=== PATIENT | female | born 1950 | race Caucasian/White ===

== ENCOUNTER 2018-01-30 20:43 | Inpatient (IN) | payer MEDICARE, BC ==
[~2018-01-30] VITALS: Ht 157.5 cm; Wt 40.8 kg
[2018-01-30 21:00] VITALS: BP_SYST 135
[2018-01-30] MEDS ORDERED: Z GUARD REMEDY PASTE 57 GM TUBE TOP PRN (21:15)
--- NOTE | 2018-01-30 21:30 | NUR ---
Pt arrived in the unit at 2100 via gurney. Transported by ambulance. Vital signs: BP 145/77, HR 86, RR 19, TEMP. 99.5 F, O2 SAT 95%. No acute distress noted. Pertinent assessment done. Pictures taken and in chart. Oriented patient to the unit and equipment. Pt has mcginnis catheter, draining well with yellow colored urine. On contact isolation for herpes zoster on the eye. Safety measures maintained. Call light and personal belongings within reach. Will continue to monitor.
[2018-01-30] MEDS ORDERED: CALC0.258 PO (21:34)
[2018-01-30] MEDS ORDERED: SENN-18 PO (21:34)
[2018-01-30] MEDS ORDERED: GABA600T PO (21:34)
[2018-01-30] MEDS ORDERED: SODI650T PO (21:34)
[2018-01-30] MEDS ORDERED: OMEP20TA20 PO (21:34)
[2018-01-30] MEDS ORDERED: LEVO112T2 PO (21:34)
[2018-01-30] MEDS ORDERED: TRAZ-147 PO (21:34)
[2018-01-30] MEDS ORDERED: BUPR-96 PO (21:34)
[2018-01-30] MEDS ORDERED: DIME240C2 PO (21:34)
[2018-01-30] MEDS ORDERED: METO-356 PO (21:34)
[2018-01-30] MEDS ORDERED: SERT50TA PO (21:34)
--- NOTE | 2018-01-30 22:00 | NUR ---
MD Shayla Benitez notified regarding admission and medication reconciliation. Med recon completed and faxed to after-hour pharmacy. Notified the after hour pharmacy. According to pharmacist, med recon to be done by [facility] in AM. Med recon faxed to [facility]. Informed Dr. Benitez regarding patient's isolation status and no anti-virals, per MD, "follow up with AM doctor." Will continue to monitor pt.
[2018-01-30] MEDS ORDERED: TRAZODONE 100 MG TABLET PO STA (23:25)
--- NOTE | 2018-01-31 | NUR ---
Pt has some home meds in her belongings and was collected. Pt wanted to take one of her home meds named Tecfidera. Explained to the pt that we have to send it to the pharmacy first and has to approved it. notified and said that it can be resume in the morning. Will continue to monitor.
[2018-01-31] MEDS: ACETAMINOPHEN 325 MG TABLET PO PRN ×2 (00:03→12:03)
[2018-01-31 07:45] LABS: BASOPHILS # (AUTO) 0.1 K/uL (0.0-8.0); BASOPHILS % (AUTO) 1.6 % (0.0-2.0); EOSINOPHILS # (AUTO) 0.4 K/uL (0.0-0.7); EOSINOPHILS % (AUTO) 8.6 % (0.0-7.0); HEMATOCRIT 28.5 % (31.2-41.9); HEMOGLOBIN 9.8 g/dL (10.9-14.3); LYMPHOCYTES # (AUTO) 1.4 K/uL (20.0-40.0); LYMPHOCYTES % (AUTO) 28.1 % (20.5-51.5); MEAN CORPUSCULAR HEMOGLOBIN 30.7 uug (24.7-32.8); MEAN CORPUSCULAR HGB CONC 34 g/dL (32.3-35.6); MEAN CORPUSCULAR VOLUME 89.4 fL (75.5-95.3); MONOCYTES # (AUTO) 0.8 K/uL (2.0-10.0); MONOCYTES % (AUTO) 17.3 % (0.0-11.0); NEUTROPHILS # (AUTO) 2.2 K/uL (1.8-8.9); NEUTROPHILS % (AUTO) 44.4 % (38.5-71.5); PLATELET COUNT (AUTO) 295 K/uL (179-408); RED BLOOD CELL COUNT(AUTO) 3.18 MIL/uL (3.63-4.92); WHITE BLOOD COUNT (AUTO) 4.9 K/uL (3.8-11.8)
[2018-01-31] MEDS ORDERED: SENNOSIDES 1 TABLET PO PRN ×2 (07:45→12:00)
[2018-01-31 07:52] LABS: CREATININE 2.2 mg/dL (0.6-1.3); POTASSIUM 4.6 mmol/L (3.5-5.1)
[2018-01-31 08:53] VITALS: BP 136/75
[2018-01-31] MEDS ORDERED: METOPROLOL TARTRATE 25 MG TABLET PO ONE (09:00)
[2018-01-31] MEDS: buPROPion XL 150 MG TAB.SR.24H PO SCH (09:01)
[2018-01-31] MEDS: LEVOTHYROXINE SODIUM 112 MCG TABLET PO SCH (09:01)
[2018-01-31] MEDS: PANTOPRAZOLE SODIUM 40 MG TABLET.DR PO SCH (09:01)
[2018-01-31] MEDS: GABAPENTIN 300 MG CAPSULE PO SCH ×2 (09:01→16:38)
[2018-01-31 09:55] LABS: BASOPHILS % (MANUAL) 1 % (0-2); EOSINOPHILS % (MANUAL) 6 % (0-8); LYMPHOCYTES % (MANUAL) 34 % (20-40); MONOCYTES % (MANUAL) 11 % (2-10); NEUTROPHILS % (MANUAL) 47 % (42-75)
[2018-01-31 09:58] LABS: REACTIVE LYMPHOCYTES 1 % (0-0)
[2018-01-31] MEDS: SODIUM BICARBONATE 650 MG TABLET PO SCH ×2 (10:10→16:38)
[2018-01-31] MEDS: TECFIDERA 240 MG PO SCH ×2 (10:10→16:37)
--- NOTE | 2018-01-31 14:11 | NUR ---
SBAR report received, board updated. Pt assessed, no acute distress or SOB. Pt complaint with all routine medication administration including Tylenol for headache. Whalen Catheter irrigated and 660 ml emptied. Pt clean and dry, linens and gown changed. Pt seen by MD, new orders received. Pt sat up for breakfast, and assisted back in to bed. Pt x1 assist. All safety and comfort needs attended to. Bed in locked and lowest position with side rails upx2. Contact isolation maintained r/t herpes zoster scabs present surrounding right eye to sculp. Call light placed within reach. Will continue to monitor.
[2018-01-31] MEDS: MIRALAX 17 GM POWD.PACK PO PRN (16:39)
[2018-01-31] MEDS: HYDROCODONE/APAP 10-325 MG TABLET PO PRN (18:34)
--- NOTE | 2018-01-31 20:00 | NUR ---
PATIENT A/OX4. ABLE TO AMBULATE WITH FRONT WHEEL WALKER WITH STAND BY ASSIST TO RESTROOM. PATIENT DENIES PAIN AT THIS TIME. PLASCENCIA CATH DRAINING CLEAR YELLOW URINE. NO DISTRESS NOTED
[2018-01-31 20:31] VITALS: BP 148/66
[2018-01-31] MEDS: TRAZODONE 100 MG TABLET PO SCH (20:46)
[2018-01-31] MEDS: METOPROLOL TARTRATE 25 MG TABLET PO SCH (20:46)
[2018-01-31] MEDS: SERTRALINE HCL 50 MG TABLET PO SCH (20:47)
[2018-01-31] MEDS ORDERED: METOPROLOL SUCCINATE XL 25 MG TAB.SR.24H PO SCH (21:00)
[2018-01-31] MEDS ORDERED: TRAZODONE 100 MG TABLET PO SCH (21:00)
[2018-02-01 05:18] VITALS: BP 131/78
[2018-02-01] MEDS: PANTOPRAZOLE SODIUM 40 MG TABLET.DR PO SCH (06:15)
[2018-02-01] MEDS: LEVOTHYROXINE SODIUM 112 MCG TABLET PO SCH (06:15)
[2018-02-01 07:45] LABS: BASOPHILS # (AUTO) 0.1 K/uL (0.0-8.0); BASOPHILS % (AUTO) 1.5 % (0.0-2.0); EOSINOPHILS # (AUTO) 0.4 K/uL (0.0-0.7); EOSINOPHILS % (AUTO) 5.6 % (0.0-7.0); HEMATOCRIT 31.4 % (31.2-41.9); HEMOGLOBIN 10.7 g/dL (10.9-14.3); LYMPHOCYTES # (AUTO) 1.3 K/uL (20.0-40.0); LYMPHOCYTES % (AUTO) 20.2 % (20.5-51.5); MEAN CORPUSCULAR HEMOGLOBIN 30.4 uug (24.7-32.8); MEAN CORPUSCULAR HGB CONC 34 g/dL (32.3-35.6); MEAN CORPUSCULAR VOLUME 89.5 fL (75.5-95.3); MONOCYTES # (AUTO) 0.8 K/uL (2.0-10.0); MONOCYTES % (AUTO) 12.4 % (0.0-11.0); NEUTROPHILS % (AUTO) 60.3 % (38.5-71.5); PLATELET COUNT (AUTO) 315 K/uL (179-408); WHITE BLOOD COUNT (AUTO) 6.6 K/uL (3.8-11.8)
[2018-02-01] MEDS: buPROPion XL 150 MG TAB.SR.24H PO SCH (07:55)
[2018-02-01] MEDS: METOPROLOL TARTRATE 25 MG TABLET PO SCH ×2 (07:55→21:23)
[2018-02-01] MEDS: GABAPENTIN 300 MG CAPSULE PO SCH ×2 (07:55→17:02)
[2018-02-01] MEDS: SODIUM BICARBONATE 650 MG TABLET PO SCH ×2 (07:56→17:02)
[2018-02-01] MEDS: HYDROCODONE/APAP 10-325 MG TABLET PO PRN ×2 (07:56→13:53)
[2018-02-01] MEDS: TECFIDERA 240 MG PO SCH ×2 (07:56→17:02)
[2018-02-01] MEDS: CALCITRIOL 0.25 MCG CAPSULE PO SCH (07:56)
[2018-02-01 08:20] VITALS: BP 135/72
[2018-02-01 08:55] LABS: BILIRUBIN,TOTAL 0.2 mg/dL (0.2-1.0); CREATININE 2.2 mg/dL (0.6-1.3); MAGNESIUM 1.6 mg/dL (1.8-2.4); POTASSIUM 4.7 mmol/L (3.5-5.1); TOTAL PROTEIN, SERUM 6.3 g/dL (6.4-8.2)
--- NOTE | 2018-02-01 08:58 | NUR ---
Received patient awake, alert and orientedx4. Complaint of generalize pain scale of 7 out of 10. Continue on pain management with good effect. not in distress. will continue monitor
[2018-02-01 11:30] LABS: *BILIRUBIN,URIN NEGATIVE (NEGATIVE); *BLOOD, URINE 1+ (NEGATIVE); *CLARITY,URINE CLEAR (CLEAR); *COLOR,URINE YELLOW (YELLOW); *KETONES,URINE NEGATIVE (NEGATIVE); *PROTEIN,URINE 1+ (NEGATIVE); *UROBILINOGEN,URINE 0.2 E.U./dl (NORMAL); LEUKOCYTE ESTERASE ,URINE 3+ (NEGATIVE); NITRITE, URINE NEGATIVE (NEGATIVE); PH,URINE 7.5 (5.0-8.0); UGLUCOSE NEGATIVE (NEGATIVE)
[2018-02-01 11:34] LABS: *CREATININE,URINE 20.8 mg/dL (30-125); *URINE TOTAL PROTEIN RANDOM 37.9 mg/dL (<150/24HR)
[2018-02-01 12:00] LABS: BACTERIA,URINE FEW /HPF (NONE SEEN); SQUAMOUS EPITHELIAL CELL,UR FEW /HPF (NONE SEEN)
--- NOTE | 2018-02-01 17:28 | NUR ---
urine and stool standard order collected, awaiting result
--- NOTE | 2018-02-01 20:00 | NUR ---
Patient received on bed awake, alert, and oriented x4. No acute distress or SOB was noted. on room air. On contact isolation. Whalen catheter in place, draining well. Personal belongings and call light within reach. All comfort and safety measure implemented. Bed alarm on, bed in locked and lowest position with side rails up x2. Will continue to monitor.
[2018-02-01] MEDS: TRAZODONE 100 MG TABLET PO SCH (21:11)
[2018-02-01 21:12] VITALS: BP 105/62
[2018-02-01] MEDS: SERTRALINE HCL 50 MG TABLET PO SCH (21:24)
[2018-02-02 05:39] VITALS: BP 142/77
--- NOTE | 2018-02-02 05:58 | NUR ---
End of the shift note, The patient is awake and alert x4. No acute distress, no SOB. On room air with O2 sat 99%. Whalen catheter was in placed, and irrigate with normal saline, draining well. No complain of pain. Meds given as ordered,Call light and personal belonging within reach. Bed alarm and bed brakes on for safety precaution. Was stable throughout the shift. Will endorse day shift nurses accordingly.
[2018-02-02] MEDS: PANTOPRAZOLE SODIUM 40 MG TABLET.DR PO SCH (06:50)
[2018-02-02] MEDS: LEVOTHYROXINE SODIUM 112 MCG TABLET PO SCH (06:50)
[2018-02-02 08:00] VITALS: BP 130/62
--- NOTE | 2018-02-02 08:15 | NUR ---
Received patient, awake alert x4. Intact Whalen draining to yellow colored urine. Not in any form of distress. Still on isolation for Shingles.
--- NOTE | 2018-02-02 09:30 | NUR ---
Pain over face rated as 8/10. PRN [place] given.
[2018-02-02] MEDS: SODIUM BICARBONATE 650 MG TABLET PO SCH ×2 (09:56→17:17)
[2018-02-02] MEDS: GABAPENTIN 300 MG CAPSULE PO SCH (09:57)
[2018-02-02] MEDS: HYDROCODONE/APAP 10-325 MG TABLET PO PRN (09:57)
[2018-02-02] MEDS: TECFIDERA 240 MG PO SCH ×2 (09:57→17:17)
[2018-02-02] MEDS: buPROPion XL 150 MG TAB.SR.24H PO SCH (09:57)
[2018-02-02] MEDS: METOPROLOL TARTRATE 25 MG TABLET PO SCH ×2 (09:58→21:00)
[2018-02-02 11:15] LABS: *OCCULT BLOOD STOOL NEGATIVE (NEGATIVE)
[2018-02-02 16:02] VITALS: BP 141/65
[2018-02-02] MEDS ORDERED: GABAPENTIN 400 MG CAPSULE PO SCH (17:00)
[2018-02-02 19:30] VITALS: BP 134/71
[2018-02-02] MEDS ORDERED: PREGABALIN 25 MG CAPSULE PO SCH (20:00)
--- NOTE | 2018-02-02 20:00 | NUR ---
Patient received on bed awake, alert, and oriented x4. No acute distress or SOB was noted. on room air. She is not on contact isolation anymore. Whalen catheter in place, draining well. Personal belongings and call light within reach. Complained of pain. All comfort and safety measure implemented. Bed alarm on, bed in locked and lowest position with side rails up x2. Will continue to monitor.
[2018-02-02] MEDS: SERTRALINE HCL 50 MG TABLET PO SCH (20:57)
[2018-02-02] MEDS: OXYCODONE HCL 10 MG TAB.SR.12H PO SCH ×3 (20:58→21:01)
[2018-02-02] MEDS: TRAZODONE 100 MG TABLET PO SCH (20:59)
[2018-02-02] MEDS: PREGABALIN 100 MG CAPSULE PO SCH (20:59)
--- NOTE | 2018-02-02 21:47 | NUR ---
at 2000 dose of Oxycontin 10 mg PO given. Tolerated well. Safety measure was implemented. Continue to monitor and reassess the pain.
[2018-02-03] MEDS: LEVOTHYROXINE SODIUM 112 MCG TABLET PO SCH (06:47)
[2018-02-03] MEDS: PANTOPRAZOLE SODIUM 40 MG TABLET.DR PO SCH (06:47)
--- NOTE | 2018-02-03 06:54 | NUR ---
End of the shift note, The patient is awake and alert x4. No acute distress, no SOB. On room air with O2 sat 95%. Whalen catheter was in placed, draining well. pain assessed and reassessed after pain medication. Meds given as ordered. Call light and personal belonging within reach. Bed alarm and bed brakes on for safety precaution. Was stable throughout the shift. Will endorse day shift nurses accordingly.
[2018-02-03 07:11] LABS: BASOPHILS # (AUTO) 0.2 K/uL (0.0-8.0); BASOPHILS % (AUTO) 1.9 % (0.0-2.0); EOSINOPHILS # (AUTO) 0.3 K/uL (0.0-0.7); HEMATOCRIT 30.3 % (31.2-41.9); HEMOGLOBIN 10.3 g/dL (10.9-14.3); LYMPHOCYTES # (AUTO) 2.2 K/uL (20.0-40.0); LYMPHOCYTES % (AUTO) 26.2 % (20.5-51.5); MEAN CORPUSCULAR HEMOGLOBIN 30.2 uug (24.7-32.8); MEAN CORPUSCULAR HGB CONC 34 g/dL (32.3-35.6); MEAN CORPUSCULAR VOLUME 89.4 fL (75.5-95.3); MONOCYTES % (AUTO) 11.9 % (0.0-11.0); NEUTROPHILS # (AUTO) 4.7 K/uL (1.8-8.9); PLATELET COUNT (AUTO) 308 K/uL (179-408); RED BLOOD CELL COUNT(AUTO) 3.39 MIL/uL (3.63-4.92); WHITE BLOOD COUNT (AUTO) 8.3 K/uL (3.8-11.8)
[2018-02-03 07:32] LABS: BILIRUBIN,TOTAL 0.2 mg/dL (0.2-1.0); CREATININE 2.5 mg/dL (0.6-1.3); MAGNESIUM 1.7 mg/dL (1.8-2.4); PHOSPHOROUS 6.2 mg/dL (2.5-4.9); POTASSIUM 5.5 mmol/L (3.5-5.1); TOTAL PROTEIN, SERUM 6.4 g/dL (6.4-8.2)
--- NOTE | 2018-02-03 08:10 | NUR ---
RECEIVED PATIENT, AWAKE ALERT X4. WITH PLASCENCIA INTACT DRAINING TO YELLOW COLORED URINE, CLOUDY. WITH PAIN OVER FACE RATED 7/10. NOT IN ANY FORM OF DISTRESS.
[2018-02-03] MEDS ORDERED: SODIUM POLYSTYRENE SULFONATE 15 G/60 ML LIQUID UDC PO ONE (08:30)
[2018-02-03] MEDS: SODIUM BICARBONATE 650 MG TABLET PO SCH ×2 (09:06→17:47)
[2018-02-03] MEDS: TECFIDERA 240 MG PO SCH ×2 (09:06→17:47)
[2018-02-03] MEDS: OXYCODONE HCL 10 MG TAB.SR.12H PO SCH ×2 (09:06→21:05)
[2018-02-03] MEDS: buPROPion XL 150 MG TAB.SR.24H PO SCH (09:06)
[2018-02-03] MEDS: CALCITRIOL 0.25 MCG CAPSULE PO SCH (09:06)
[2018-02-03] MEDS: METOPROLOL TARTRATE 25 MG TABLET PO SCH ×2 (09:07→21:00)
[2018-02-03] MEDS: PREGABALIN 100 MG CAPSULE PO SCH ×2 (09:07→21:05)
[2018-02-03 09:35] VITALS: BP 120/71
--- NOTE | 2018-02-03 10:40 | NUR ---
SEEN AND EXAMINED BY DR. HUANG. LABS ORDERED, LIDOCAINE OINTMENT ORDERED FOR FACIAL SCAR
--- NOTE | 2018-02-03 11:00 | NUR ---
PATIENT REQUESTED PLASCENCIA CATHETER TO BE IRRIGATED. IRRIGATION DONE WITH YELLOWISH URINE RETURN ACCOMPANIED BY SEDIMENTS AND MUCOUS. NO PAIN NOTED.
[2018-02-03] MEDS: MIRALAX 17 GM POWD.PACK PO PRN (12:14)
[2018-02-03] MEDS: LIDOCAINE 5% OINT 35.44 GM TUBE TOP SCH ×2 (12:14→17:48)
--- NOTE | 2018-02-03 13:53 | NUR ---
INTERDISCIPLINARY TEAM CONFERENCE
[2018-02-03] MEDS: OXYCODONE HCL 5 MG TABLET PO PRN (14:07)
[2018-02-03] MEDS ORDERED: MAGNESIUM OXIDE 400 MG TABLET PO ONE (14:30)
[2018-02-03 16:16] VITALS: BP 111/57
[2018-02-03 20:00] VITALS: BP 110/53
[2018-02-03] MEDS: TRAZODONE 100 MG TABLET PO SCH (21:04)
[2018-02-03] MEDS: SERTRALINE HCL 50 MG TABLET PO SCH (21:05)
--- NOTE | 2018-02-03 22:05 | NUR ---
Received pt resting in bed and watching TV. AAO x4. No acute distress noted. C/o pain on the right side of the head, pt has some painful rash on the area due to shingles. Scheduled pain med and other meds given. Held lopressor due to decreased BP. Whalen catheter noted, draining well with clear yellow colored urine. Safety measures maintained. Call light and personal belongings within reach. Will continue to monitor.
[2018-02-04 04:00] VITALS: BP 122/51
[2018-02-04] MEDS: LEVOTHYROXINE SODIUM 112 MCG TABLET PO SCH (06:12)
[2018-02-04] MEDS: PANTOPRAZOLE SODIUM 40 MG TABLET.DR PO SCH (06:12)
[2018-02-04 07:20] LABS: BASOPHILS # (AUTO) 0.1 K/uL (0.0-8.0); BASOPHILS % (AUTO) 1.1 % (0.0-2.0); EOSINOPHILS # (AUTO) 0.3 K/uL (0.0-0.7); EOSINOPHILS % (AUTO) 4.7 % (0.0-7.0); HEMATOCRIT 29.8 % (31.2-41.9); HEMOGLOBIN 10.2 g/dL (10.9-14.3); LYMPHOCYTES # (AUTO) 1.8 K/uL (20.0-40.0); LYMPHOCYTES % (AUTO) 30.1 % (20.5-51.5); MEAN CORPUSCULAR HEMOGLOBIN 30.4 uug (24.7-32.8); MEAN CORPUSCULAR HGB CONC 34 g/dL (32.3-35.6); MEAN CORPUSCULAR VOLUME 88.8 fL (75.5-95.3); MONOCYTES # (AUTO) 0.6 K/uL (2.0-10.0); MONOCYTES % (AUTO) 11.1 % (0.0-11.0); NEUTROPHILS # (AUTO) 3.1 K/uL (1.8-8.9); PLATELET COUNT (AUTO) 297 K/uL (179-408); RED BLOOD CELL COUNT(AUTO) 3.35 MIL/uL (3.63-4.92); WHITE BLOOD COUNT (AUTO) 5.8 K/uL (3.8-11.8)
[2018-02-04 07:40] LABS: BILIRUBIN,TOTAL 0.2 mg/dL (0.2-1.0); CREATININE 2.6 mg/dL (0.6-1.3); MAGNESIUM 1.7 mg/dL (1.8-2.4); PHOSPHOROUS 7.1 mg/dL (2.5-4.9); POTASSIUM 4.9 mmol/L (3.5-5.1); TOTAL PROTEIN, SERUM 6.5 g/dL (6.4-8.2)
[2018-02-04] MEDS: BISACODYL 5 MG TABLET.DR PO PRN (08:14)
[2018-02-04] MEDS: MIRALAX 17 GM POWD.PACK PO PRN (08:14)
[2018-02-04] MEDS: buPROPion XL 150 MG TAB.SR.24H PO SCH (08:15)
[2018-02-04] MEDS: METOPROLOL TARTRATE 25 MG TABLET PO SCH ×2 (08:16→21:00)
[2018-02-04] MEDS: PREGABALIN 100 MG CAPSULE PO SCH ×2 (08:16→20:57)
[2018-02-04] MEDS: OXYCODONE HCL 10 MG TAB.SR.12H PO SCH ×2 (08:16→20:58)
[2018-02-04] MEDS: LIDOCAINE 5% OINT 35.44 GM TUBE TOP SCH ×2 (08:17→16:49)
[2018-02-04] MEDS: SODIUM BICARBONATE 650 MG TABLET PO SCH ×2 (08:17→16:47)
[2018-02-04] MEDS: TECFIDERA 240 MG PO SCH ×2 (08:17→16:46)
[2018-02-04 08:25] VITALS: BP 133/60
--- NOTE | 2018-02-04 09:32 | NUR ---
Received patient awake, alert and orientedx3. Continue on pain management with good effect. no BM since 02/01/18, miralax and dulcolax 10mg PO given. Continue on mcginnis catheter, 900cc urine output with mucous noted. flush 50cc of sterile water done. for collection of urine for creatinine random and urinalysis. will continue monitor
[2018-02-04] MEDS ORDERED: MAGNESIUM SULFATE/D5W 100 ML IV SCH (12:00)
[2018-02-04] MEDS ORDERED: IV NS 1000 ML 1,000 ML IV PRN (12:00)
[2018-02-04] MEDS: SEVELAMER CARBONATE 800 MG TABLET PO SCH ×2 (12:37→16:44)
[2018-02-04] MEDS ORDERED: MAGNESIUM OXIDE 400 MG TABLET PO ONE (12:45)
[2018-02-04 13:39] LABS: *BILIRUBIN,URIN NEGATIVE (NEGATIVE); *BLOOD, URINE 2+ (NEGATIVE); *COLOR,URINE LIGHT YELLOW (YELLOW); *KETONES,URINE NEGATIVE (NEGATIVE); *PROTEIN,URINE 1+ (NEGATIVE); *UROBILINOGEN,URINE 0.2 E.U./dl (NORMAL); LEUKOCYTE ESTERASE ,URINE 3+ (NEGATIVE); NITRITE, URINE NEGATIVE (NEGATIVE); PH,URINE 7.5 (5.0-8.0); UGLUCOSE NEGATIVE (NEGATIVE)
[2018-02-04 13:49] LABS: *CLARITY,URINE HAZY (CLEAR)
[2018-02-04 13:58] LABS: WBC,URINE 50-80 /HPF (0-3)
[2018-02-04 13:59] LABS: BACTERIA,URINE FEW /HPF (NONE SEEN); MUCUS,URINE FEW /LPF (0-FEW); SQUAMOUS EPITHELIAL CELL,UR FEW /HPF (NONE SEEN)
[2018-02-04 14:09] LABS: *CREATININE,URINE 22.4 mg/dL (30-125); *URINE TOTAL PROTEIN RANDOM 48.1 mg/dL (<150/24HR)
[2018-02-04 16:34] VITALS: BP 92/50
[2018-02-04] MEDS: OXYCODONE HCL 5 MG TABLET PO PRN (16:45)
--- NOTE | 2018-02-04 18:07 | NUR ---
Patient low magnesium result. MD Mancilla aware. Patient refuse IVF magnesium, ordered mg oxide 400 mg one time PO, urine collected for creatinine random and UA/CS, negative for critical value, awaiting for culture. will continue monitor
[2018-02-04 19:44] VITALS: BP 108/48
[2018-02-04] MEDS: SERTRALINE HCL 50 MG TABLET PO SCH (20:57)
[2018-02-04] MEDS: TRAZODONE 100 MG TABLET PO SCH (20:58)
--- NOTE | 2018-02-04 21:28 | NUR ---
Patient sleeping upon arrival to room , pt easily aroused by name , A & O x 4 , pt complaining pain from rash on rt forehead , Medications given at 2100 , pain med oxycontin 10 mg given as scheduled . Withheld Lopressor due to low BP . Whalen catheter checked and intact , urine clear and yellow.
[2018-02-05 05:00] VITALS: BP 120/62
[2018-02-05] MEDS: PANTOPRAZOLE SODIUM 40 MG TABLET.DR PO SCH (06:22)
[2018-02-05] MEDS: LEVOTHYROXINE SODIUM 112 MCG TABLET PO SCH (06:27)
[2018-02-05 06:55] LABS: CREATININE 2.9 mg/dL (0.6-1.3); MAGNESIUM 1.7 mg/dL (1.8-2.4); PHOSPHOROUS 7.1 mg/dL (2.5-4.9); POTASSIUM 5.3 mmol/L (3.5-5.1)
[2018-02-05 07:00] LABS: BASOPHILS # (AUTO) 0.1 K/uL (0.0-8.0); BASOPHILS % (AUTO) 1.1 % (0.0-2.0); EOSINOPHILS # (AUTO) 0.3 K/uL (0.0-0.7); EOSINOPHILS % (AUTO) 4.3 % (0.0-7.0); HEMATOCRIT 27.7 % (31.2-41.9); HEMOGLOBIN 9.5 g/dL (10.9-14.3); LYMPHOCYTES # (AUTO) 1.6 K/uL (20.0-40.0); LYMPHOCYTES % (AUTO) 21.4 % (20.5-51.5); MEAN CORPUSCULAR HEMOGLOBIN 30.5 uug (24.7-32.8); MEAN CORPUSCULAR HGB CONC 34 g/dL (32.3-35.6); MEAN CORPUSCULAR VOLUME 89.5 fL (75.5-95.3); MONOCYTES # (AUTO) 0.8 K/uL (2.0-10.0); NEUTROPHILS # (AUTO) 4.6 K/uL (1.8-8.9); NEUTROPHILS % (AUTO) 62.2 % (38.5-71.5); PLATELET COUNT (AUTO) 284 K/uL (179-408); RED BLOOD CELL COUNT(AUTO) 3.09 MIL/uL (3.63-4.92); WHITE BLOOD COUNT (AUTO) 7.4 K/uL (3.8-11.8)
--- NOTE | 2018-02-05 08:00 | NUR ---
Patient awake, in bed, alert, verbally responsive, not in any form of acute distress. She denies any pain or discomfort at this time. Assisted with her needs. Call light placed within reach. Reminded to use call light for assistance with verbalized understanding.
[2018-02-05 08:37] VITALS: BP 123/60
[2018-02-05] MEDS: buPROPion XL 150 MG TAB.SR.24H PO SCH (08:45)
[2018-02-05] MEDS: SEVELAMER CARBONATE 800 MG TABLET PO SCH ×3 (08:46→17:33)
[2018-02-05] MEDS: OXYCODONE HCL 10 MG TAB.SR.12H PO SCH ×2 (08:47→20:18)
[2018-02-05] MEDS: PREGABALIN 100 MG CAPSULE PO SCH ×2 (08:47→20:18)
[2018-02-05] MEDS: LIDOCAINE 5% OINT 35.44 GM TUBE TOP SCH ×2 (08:48→17:32)
[2018-02-05] MEDS: TECFIDERA 240 MG PO SCH ×2 (08:48→17:32)
[2018-02-05] MEDS: SODIUM BICARBONATE 650 MG TABLET PO SCH ×2 (08:48→17:32)
[2018-02-05] MEDS: METOPROLOL TARTRATE 25 MG TABLET PO SCH ×2 (08:50→20:19)
--- NOTE | 2018-02-05 11:30 | NUR ---
Dr. Oquendo made his rounds, notified him regarding abnormal lab results especially potassium and UA result and MD said he will check into it and will put in some orders.
[2018-02-05] MEDS ORDERED: MAGNESIUM OXIDE 400 MG TABLET PO ONE (12:15)
[2018-02-05] MEDS: IV NS 1000 ML 1,000 ML IV SCH (13:16)
[2018-02-05] MEDS: BISACODYL 5 MG TABLET.DR PO PRN (13:20)
[2018-02-05 15:00] VITALS: BP 109/54
[2018-02-05] MEDS: OXYCODONE HCL 5 MG TABLET PO PRN (17:39)
[2018-02-05] MEDS: SERTRALINE HCL 50 MG TABLET PO SCH (20:17)
[2018-02-05] MEDS: TRAZODONE 100 MG TABLET PO SCH (20:18)
[2018-02-05 21:45] VITALS: BP 106/51
--- NOTE | 2018-02-05 22:00 | NUR ---
Patient received on bed awake, alert, and oriented x4. No acute distress or SOB was noted. On room air. No contact isolation anymore. Whalen catheter in place, draining well. IV gauge 22 on left wrist, NS 0.9% 75 ml per hour. Meds given as ordered. Personal belongings and call light within reach. Complained of pain. pain assessed and reassessed after pain medication. All comfort and safety measure implemented. Bed alarm on, bed in locked and lowest position with side rails up x2. Will continue to monitor.
[2018-02-06] MEDS: IV NS 1000 ML 1,000 ML IV SCH ×3 (01:11→23:30)
[2018-02-06] MEDS: LEVOTHYROXINE SODIUM 112 MCG TABLET PO SCH (06:19)
[2018-02-06] MEDS: PANTOPRAZOLE SODIUM 40 MG TABLET.DR PO SCH (06:19)
[2018-02-06] MEDS: MIRALAX 17 GM POWD.PACK PO PRN (06:20)
[2018-02-06 06:56] VITALS: BP 113/55
[2018-02-06 08:08] VITALS: BP 113/63
--- NOTE | 2018-02-06 08:10 | NUR ---
Received patient, awake, alert x4. With pain over upper face rated as 6/10. With intact IV infusing to NS at 75mls/hr. Intact Whalen catheter draining to yellow colored urine.
[2018-02-06 08:40] LABS: CREATININE 3.3 mg/dL (0.6-1.3); MAGNESIUM 1.8 mg/dL (1.8-2.4)
[2018-02-06 08:46] LABS: BASOPHILS # (AUTO) 0.1 K/uL (0.0-8.0); BASOPHILS % (AUTO) 1.2 % (0.0-2.0); EOSINOPHILS # (AUTO) 0.2 K/uL (0.0-0.7); EOSINOPHILS % (AUTO) 3.8 % (0.0-7.0); HEMATOCRIT 25.8 % (31.2-41.9); HEMOGLOBIN 8.7 g/dL (10.9-14.3); LYMPHOCYTES # (AUTO) 1.5 K/uL (20.0-40.0); LYMPHOCYTES % (AUTO) 25.7 % (20.5-51.5); MEAN CORPUSCULAR HEMOGLOBIN 30.2 uug (24.7-32.8); MEAN CORPUSCULAR HGB CONC 34 g/dL (32.3-35.6); MEAN CORPUSCULAR VOLUME 89.7 fL (75.5-95.3); MONOCYTES # (AUTO) 0.5 K/uL (2.0-10.0); MONOCYTES % (AUTO) 9.4 % (0.0-11.0); NEUTROPHILS # (AUTO) 3.5 K/uL (1.8-8.9); NEUTROPHILS % (AUTO) 59.9 % (38.5-71.5); PLATELET COUNT (AUTO) 244 K/uL (179-408); RED BLOOD CELL COUNT(AUTO) 2.87 MIL/uL (3.63-4.92); WHITE BLOOD COUNT (AUTO) 5.8 K/uL (3.8-11.8)
[2018-02-06] MEDS: TECFIDERA 240 MG PO SCH ×3 (09:56→21:45)
[2018-02-06] MEDS: CALCITRIOL 0.25 MCG CAPSULE PO SCH (09:56)
[2018-02-06] MEDS: METOPROLOL TARTRATE 25 MG TABLET PO SCH ×2 (09:57→21:46)
[2018-02-06] MEDS: LIDOCAINE 5% OINT 35.44 GM TUBE TOP SCH ×2 (09:57→18:12)
[2018-02-06] MEDS: buPROPion XL 150 MG TAB.SR.24H PO SCH (09:57)
[2018-02-06] MEDS: OXYCODONE HCL 10 MG TAB.SR.12H PO SCH ×2 (09:57→20:22)
[2018-02-06] MEDS: SEVELAMER CARBONATE 800 MG TABLET PO SCH ×3 (09:57→18:10)
[2018-02-06] MEDS: SODIUM BICARBONATE 650 MG TABLET PO SCH ×2 (09:57→18:10)
[2018-02-06] MEDS: PREGABALIN 100 MG CAPSULE PO SCH ×2 (09:57→20:24)
--- NOTE | 2018-02-06 10:30 | NUR ---
IV infiltrated. Up with physical therapy, tolerating well.
--- NOTE | 2018-02-06 11:30 | NUR ---
IV started over left posterior arm .
[2018-02-06] MEDS: OXYCODONE HCL 5 MG TABLET PO PRN (12:22)
[2018-02-06] MEDS ORDERED: EPOETIN ALFA 10,000 UNITS/ML VIAL SQ ONE (12:30)
[2018-02-06 16:05] VITALS: BP 133/65
[2018-02-06] MEDS ORDERED: BISACODYL 10 MG SUPP.RECT RC PRN (18:15)
[2018-02-06 19:30] VITALS: BP 120/57
[2018-02-06] MEDS: TRAZODONE 100 MG TABLET PO SCH (20:22)
[2018-02-06] MEDS: SERTRALINE HCL 50 MG TABLET PO SCH (20:22)
--- NOTE | 2018-02-06 20:30 | NUR ---
Patient appears to be weak. Pt stated that she feels anxious because she is thinking about a lot of things. Also c/o pain on the right side of the head due to shingles. Slight shortness of breath, O2 sat dropped to 88%. O2 via NC 2LPM applied. O2 sat immediately went up to 94% after O2 administration. Vital signs checked, stable. Some twitching was also observed on both feet, patient stated that she has this symptom even before due to multiple sclerosis. Pain med given as ordered. City Superintendent was in the unit doing rounds at this time and was able to seen pt, advised to continue monitoring. Advised and taught pt relaxation techniques and assured her that we are here to help her and we will continue to monitor her. Will continue to closely monitor pt t/o the night.
[2018-02-06] MEDS ORDERED: TECFIDERA 240 MG PO ONE (21:00)
--- NOTE | 2018-02-06 21:30 | NUR ---
Patient sleeping on bed comfortably, easily aroused, stated feels better. Vital signs stable. Patient asymptomatic. Meds given as ordered. Continue to close monitoring.
--- NOTE | 2018-02-06 22:01 | NUR ---
Pt was not able to take her own medication for multiple sclerosis named Tecfidera scheduled at 1700 because it ran out. Her son brought a new bottle at 2044. Sent it to the pharmacy, received by [facility]. Pharmacist dispensed a medication for tonight and I was able to get an order to give pt's own med once for tonight from Dr. Fuller due to the missed dose in the afternoon. Will continue to monitor.
[2018-02-07] MEDS: LEVOTHYROXINE SODIUM 112 MCG TABLET PO SCH (07:12)
[2018-02-07] MEDS: PANTOPRAZOLE SODIUM 40 MG TABLET.DR PO SCH (07:12)
--- NOTE | 2018-02-07 07:15 | NUR ---
At 0650, pt's VS: BP 84/59, HR 135, O2 SAT 92% on 2L O2 via NC, Temp. 98.7. Rechecked: BP 91/55, HR 130. At 0655, called NIKOLAS [facility] registration representative. No answer. Awaiting return call. At 0700, rapid response was called. Pt's VS: BP 101/57, HR 141. Blood sugar of 100. Pt stated that she is feeling a little dizzy and pain on the right forehead due to shingles. Still awaiting call back at this time. Will continue to monitor and appropriately endorse to day shift RN.
[2018-02-07 07:19] LABS: BASOPHILS # (AUTO) 0.1 K/uL (0.0-8.0); BASOPHILS % (AUTO) 1.3 % (0.0-2.0); EOSINOPHILS # (AUTO) 0.2 K/uL (0.0-0.7); EOSINOPHILS % (AUTO) 3.1 % (0.0-7.0); HEMATOCRIT 26.8 % (31.2-41.9); HEMOGLOBIN 9.1 g/dL (10.9-14.3); LYMPHOCYTES % (AUTO) 17.5 % (20.5-51.5); MEAN CORPUSCULAR HEMOGLOBIN 30.6 uug (24.7-32.8); MEAN CORPUSCULAR HGB CONC 34 g/dL (32.3-35.6); MEAN CORPUSCULAR VOLUME 90.5 fL (75.5-95.3); MONOCYTES # (AUTO) 0.6 K/uL (2.0-10.0); MONOCYTES % (AUTO) 10.6 % (0.0-11.0); NEUTROPHILS # (AUTO) 3.9 K/uL (1.8-8.9); NEUTROPHILS % (AUTO) 67.5 % (38.5-71.5); PLATELET COUNT (AUTO) 230 K/uL (179-408); RED BLOOD CELL COUNT(AUTO) 2.96 MIL/uL (3.63-4.92); WHITE BLOOD COUNT (AUTO) 5.8 K/uL (3.8-11.8)
--- NOTE | 2018-02-07 08:00 | NUR ---
Patient awake, alert, in bed, verbally responsive, not in any form of acute distress. She denies any pain. No complain of dizziness. BP 96/63, pulse fluctuating from 70's-140's, O2 sat 92% at 2LPM,
--- NOTE | 2018-02-07 08:05 | NUR ---
Paged Dr. Godinez administration assistant for [facility] nephrology, awaiting call back. Patient remains alert, and no complain of any discomfort. Assisted with her needs. Call light placed within reach. Reminded to use call light when in need of assistance with verbalized understanding.
[2018-02-07 08:07] LABS: CREATININE 3.2 mg/dL (0.6-1.3); MAGNESIUM 1.8 mg/dL (1.8-2.4); PHOSPHOROUS 6.3 mg/dL (2.5-4.9); POTASSIUM 5.2 mmol/L (3.5-5.1)
--- NOTE | 2018-02-07 08:30 | NUR ---
Received a call back from Dr. Godinez, notified him regarding patient's episode of hypotension and fluctuating HR and MD ordered STAT EKG and STAT CXR.
[2018-02-07 08:40] VITALS: BP 96/63
[2018-02-07] MEDS: METOPROLOL TARTRATE 25 MG TABLET PO SCH ×2 (09:00→20:53)
[2018-02-07] MEDS: buPROPion XL 150 MG TAB.SR.24H PO SCH (09:34)
[2018-02-07] MEDS: SEVELAMER CARBONATE 800 MG TABLET PO SCH ×3 (09:35→17:17)
[2018-02-07] MEDS: PREGABALIN 100 MG CAPSULE PO SCH ×2 (09:38→20:53)
[2018-02-07] MEDS: OXYCODONE HCL 10 MG TAB.SR.12H PO SCH ×2 (09:39→20:55)
[2018-02-07] MEDS: SODIUM BICARBONATE 650 MG TABLET PO SCH ×2 (09:40→17:16)
[2018-02-07] MEDS: LIDOCAINE 5% OINT 35.44 GM TUBE TOP SCH ×2 (09:40→17:17)
[2018-02-07] MEDS: IV NS 1000 ML 1,000 ML IV SCH ×3 (09:46→23:28)
--- NOTE | 2018-02-07 11:45 | NUR ---
Dr. Godinez came to see patient, showed him EKG result with no new order.
[2018-02-07 15:00] VITALS: BP 109/79
[2018-02-07] MEDS: TECFIDERA 240 MG PO SCH (17:15)
--- NOTE | 2018-02-07 19:20 | NUR ---
RECEIVED PT IN BED. AAO4. ON O2 AT 2LPM VIA NC. O2 SAT AT 95%, IV SITE ON LEFT FA INTACT AND PATENT. IVF INFUSING. FC INTACT AND PATENT. SAFETY MEASURE INITIATED AND CALL PINA WITHIN REACH.
--- NOTE | 2018-02-07 19:46 | NUR ---
IV NS NEW BAG HANGED BY DAY SHIFT NURSE AT 0946 AND STILL RUNNING. NO NEW BAG NEEDED AT THIS TIME.
[2018-02-07] MEDS: SERTRALINE HCL 50 MG TABLET PO SCH (20:53)
[2018-02-07] MEDS: TRAZODONE 100 MG TABLET PO SCH (20:53)
[2018-02-07 21:26] VITALS: BP 121/62
[2018-02-08 05:04] VITALS: BP 119/61
[2018-02-08] MEDS: PANTOPRAZOLE SODIUM 40 MG TABLET.DR PO SCH (06:00)
[2018-02-08] MEDS: LEVOTHYROXINE SODIUM 112 MCG TABLET PO SCH (06:00)
[2018-02-08] MEDS: BISACODYL 5 MG TABLET.DR PO PRN (06:01)
--- NOTE | 2018-02-08 06:11 | NUR ---
AAO4. ON CONTINUOS O2 AT 2LPM VIA NC. O2 SAT AT 95%. IV SITE ON LEFT FA REMAINS INTACT AND PATENT. IVF INFUSING. FC INTACT AND DRAINING VIA GRAVITY. SAFETY MEASURE MAINTAINED AND CALL [facility] WITHIN REACH.
[2018-02-08 07:32] LABS: BASOPHILS % (AUTO) 0.6 % (0.0-2.0); EOSINOPHILS % (AUTO) 0.4 % (0.0-7.0); HEMATOCRIT 25.5 % (31.2-41.9); HEMOGLOBIN 8.5 g/dL (10.9-14.3); LYMPHOCYTES # (AUTO) 0.4 K/uL (20.0-40.0); LYMPHOCYTES % (AUTO) 5.4 % (20.5-51.5); MEAN CORPUSCULAR HEMOGLOBIN 30.7 uug (24.7-32.8); MEAN CORPUSCULAR HGB CONC 34 g/dL (32.3-35.6); MEAN CORPUSCULAR VOLUME 91.4 fL (75.5-95.3); MONOCYTES # (AUTO) 0.5 K/uL (2.0-10.0); MONOCYTES % (AUTO) 6.6 % (0.0-11.0); NEUTROPHILS # (AUTO) 6.5 K/uL (1.8-8.9); PLATELET COUNT (AUTO) 224 K/uL (179-408); RED BLOOD CELL COUNT(AUTO) 2.78 MIL/uL (3.63-4.92); WHITE BLOOD COUNT (AUTO) 7.5 K/uL (3.8-11.8)
[2018-02-08 07:42] LABS: MAGNESIUM 1.7 mg/dL (1.8-2.4); POTASSIUM 5.8 mmol/L (3.5-5.1)
[2018-02-08 08:00] VITALS: BP 102/51
--- NOTE | 2018-02-08 08:10 | NUR ---
Received patient sleeping, alert and orientedx3. Continue on oxygen via nasal cannula at 2LPM. Continue flush 60cc on mcginnis catheter every shift. Continue on [id number] for 3 days. not in distress. will continue monitor
[2018-02-08] MEDS: SEVELAMER CARBONATE 800 MG TABLET PO SCH ×3 (08:51→17:54)
[2018-02-08] MEDS: PREGABALIN 100 MG CAPSULE PO SCH (08:51)
[2018-02-08] MEDS: SODIUM BICARBONATE 650 MG TABLET PO SCH ×2 (08:51→17:54)
[2018-02-08] MEDS: TECFIDERA 240 MG PO SCH ×2 (08:51→17:55)
[2018-02-08] MEDS: OXYCODONE HCL 10 MG TAB.SR.12H PO SCH ×2 (08:51→09:00)
[2018-02-08] MEDS: METOPROLOL TARTRATE 25 MG TABLET PO SCH ×2 (08:52→21:39)
[2018-02-08] MEDS: buPROPion XL 150 MG TAB.SR.24H PO SCH (08:52)
[2018-02-08] MEDS: LIDOCAINE 5% OINT 35.44 GM TUBE TOP SCH ×2 (09:26→17:54)
[2018-02-08] MEDS ORDERED: SODIUM POLYSTYRENE SULFONATE 15 G/60 ML LIQUID UDC PO ONE (10:00)
--- NOTE | 2018-02-08 10:48 | NUR ---
weakness noted when giving medicine, hard to maintain in holding her cup to drink water, need maximum assist in eating. verbalizing" Im tired". VIP MD Godinez notified and visited. ordered sodium kayexelate liquid 60ml one time and discontinue lyrica 100mg for patients weakness. Patient refuse to take oxycontin 10mg this morning. denies pain/discomfort. will continue monitor
--- NOTE | 2018-02-08 12:50 | NUR ---
Patient noted to be unresponsive for about 10minutes despite of pinching.VS: BP- 122/73 P-72 R-16 T-98.1'F BS- 123 Rapid response notified and came to assess. reposition the patient with good effect. MD mcallister notified thru phone call. will continue monitor
[2018-02-08] MEDS: IV NS 1000 ML 1,000 ML IV SCH (15:51)
[2018-02-08 19:26] VITALS: BP 126/69
--- NOTE | 2018-02-08 20:00 | NUR ---
Observed to be resting in bed at this time, easily arousable by tactile and verbal stimuli. Pt noted to be pleasantly confused and slightly anxious, but frequent reorientation provided. Pulse rate noted to be slightly tachycardic with HR in the 100's and blood pressure within normal at 116/77. No SOB. Relaxation techniques provided. Whalen catheter draining well. Safety measures implemented at all times. Call light within reach. Will continue to monitor.
[2018-02-08 20:30] VITALS: BP 117/77
[2018-02-08] MEDS ORDERED: PREGABALIN 50 MG CAPSULE PO SCH (21:00)
[2018-02-08] MEDS ORDERED: PREGABALIN 100 MG CAPSULE PO SCH (21:00)
[2018-02-08] MEDS ORDERED: OXYCODONE HCL 10 MG TAB.SR.12H PO PRN (21:00)
[2018-02-08] MEDS ORDERED: PREGABALIN 50 MG CAPSULE PO PRN (21:00)
[2018-02-08] MEDS: SERTRALINE HCL 50 MG TABLET PO SCH (21:39)
[2018-02-08] MEDS: TRAZODONE 100 MG TABLET PO SCH (21:39)
[2018-02-09] MEDS: IV NS 1000 ML 1,000 ML IV SCH (02:06)
[2018-02-09 05:40] VITALS: BP 116/70
[2018-02-09] MEDS: LEVOTHYROXINE SODIUM 112 MCG TABLET PO SCH (06:08)
[2018-02-09] MEDS: PANTOPRAZOLE SODIUM 40 MG TABLET.DR PO SCH (06:08)
--- NOTE | 2018-02-09 06:30 | NUR ---
IV INFILTRATED AT THIS TIME- ELEVATED AND WARM COMPRESS APPLIED JUGULAR VEIN DISTENTION OBSERVED WITH HR ELEVATED THE 130'S, BP AT 116/70, NO PERIPHERAL EDEMA, NO SOB NOTED. VIP MD ROD PULLER PAGED AND ENDORSED TO CALL ROD PULLER ASSEMBLIES AND INSTALLATIONS INSPECTOR DR ANN PER DR ANN, KEEP MONITORING PT AND ENDORSE TO FOLLOWING NURSE SAFE ENVIRONMENT IMPLEMENTED AT ALL TIMES. CALL LIGHT WITHIN REACH
[2018-02-09 07:44] VITALS: BP 116/65
[2018-02-09 07:53] LABS: BASOPHILS % (AUTO) 0.7 % (0.0-2.0); EOSINOPHILS % (AUTO) 0.3 % (0.0-7.0); HEMATOCRIT 26.7 % (31.2-41.9); HEMOGLOBIN 8.8 g/dL (10.9-14.3); LYMPHOCYTES # (AUTO) 0.6 K/uL (20.0-40.0); LYMPHOCYTES % (AUTO) 8.8 % (20.5-51.5); MEAN CORPUSCULAR HEMOGLOBIN 30.4 uug (24.7-32.8); MEAN CORPUSCULAR HGB CONC 33 g/dL (32.3-35.6); MEAN CORPUSCULAR VOLUME 92.1 fL (75.5-95.3); MONOCYTES # (AUTO) 0.7 K/uL (2.0-10.0); MONOCYTES % (AUTO) 10.1 % (0.0-11.0); NEUTROPHILS # (AUTO) 5.2 K/uL (1.8-8.9); NEUTROPHILS % (AUTO) 80.1 % (38.5-71.5); PLATELET COUNT (AUTO) 208 K/uL (179-408); RED BLOOD CELL COUNT(AUTO) 2.89 MIL/uL (3.63-4.92); WHITE BLOOD COUNT (AUTO) 6.5 K/uL (3.8-11.8)
[2018-02-09 08:02] LABS: CREATININE 2.8 mg/dL (0.6-1.3); MAGNESIUM 1.6 mg/dL (1.8-2.4); PHOSPHOROUS 5.8 mg/dL (2.5-4.9); POTASSIUM 4.3 mmol/L (3.5-5.1)
[2018-02-09] MEDS ORDERED: ALBUTEROL SULFATE 1.25 MG/3 ML NEBU NEB PRN (08:30)
[2018-02-09] MEDS ORDERED: IPRATROPIUM BROMIDE 0.5 MG/2.5 ML NEBU NEB PRN (08:30)
[2018-02-09] MEDS ORDERED: MAGNESIUM OXIDE 400 MG TABLET PO ONE (08:30)
[2018-02-09] MEDS: SODIUM BICARBONATE 650 MG TABLET PO SCH ×2 (08:54→17:11)
[2018-02-09] MEDS: TECFIDERA 240 MG PO SCH ×2 (08:54→17:11)
[2018-02-09] MEDS: LIDOCAINE 5% OINT 35.44 GM TUBE TOP SCH ×2 (08:55→17:12)
[2018-02-09] MEDS: METOPROLOL TARTRATE 25 MG TABLET PO SCH ×2 (08:55→20:58)
[2018-02-09] MEDS: buPROPion XL 150 MG TAB.SR.24H PO SCH (08:55)
[2018-02-09] MEDS: SEVELAMER CARBONATE 800 MG TABLET PO SCH ×3 (08:55→17:10)
[2018-02-09] MEDS ORDERED: FUROSEMIDE 40 MG TABLET PO ONE (14:00)
[2018-02-09 15:45] VITALS: BP 109/67
--- NOTE | 2018-02-09 17:54 | NUR ---
pt continues to have imbalanced electrolytes and shows signs of confusion. pt is dependent on 02 because pt desats. pt continues to be confused and removes nc. md Rosado ordered to have saline dc and cxr. cxr shows worsening chf. pt given lasix 40. pt scheduled to have ureter stent xchange in am. pt will be npo starting midnight. made son aware of procedure and signed consent. contacted md Rosado for medical clearance. PT is cleared after dose of lasix. preop checklist done. iv site 20g left wrist applied. contacted admitting to start new account for procedure.
--- NOTE | 2018-02-09 19:34 | NUR ---
Pt observed to be resting at this time. No s/s of acute distress. No SOB noted. Bed in low,locked position with bed alarm on. Call light within reach. Will continue to monitor closely
[2018-02-09 20:23] VITALS: BP 110/90
[2018-02-09] MEDS: SERTRALINE HCL 50 MG TABLET PO SCH (20:59)
[2018-02-09] MEDS: TRAZODONE 100 MG TABLET PO SCH (20:59)
[2018-02-10 05:59] VITALS: BP 120/64
[2018-02-10] MEDS: LEVOTHYROXINE SODIUM 112 MCG TABLET PO SCH (06:52)
[2018-02-10] MEDS: PANTOPRAZOLE SODIUM 40 MG TABLET.DR PO SCH (06:52)
--- NOTE | 2018-02-10 06:58 | NUR ---
KEPT NPO FOR SURGERY. INFORMED CONSENT SIGNED. NO S/S OF ACUTE DISTRESS AT THIS TIME. PT AWARE OF PLAN OF CARE AT THIS TIME WITH INTERMITTENT CONFUSION. WILL ENDORSE ACCORDINGLY
[2018-02-10 07:08] LABS: BASOPHILS # (AUTO) 0.1 K/uL (0.0-8.0); BASOPHILS % (AUTO) 1.1 % (0.0-2.0); EOSINOPHILS # (AUTO) 0.1 K/uL (0.0-0.7); EOSINOPHILS % (AUTO) 1.5 % (0.0-7.0); HEMATOCRIT 25.4 % (31.2-41.9); HEMOGLOBIN 8.4 g/dL (10.9-14.3); LYMPHOCYTES # (AUTO) 0.8 K/uL (20.0-40.0); LYMPHOCYTES % (AUTO) 10.9 % (20.5-51.5); MEAN CORPUSCULAR HGB CONC 33 g/dL (32.3-35.6); MEAN CORPUSCULAR VOLUME 90.6 fL (75.5-95.3); MONOCYTES # (AUTO) 0.8 K/uL (2.0-10.0); MONOCYTES % (AUTO) 10.6 % (0.0-11.0); NEUTROPHILS # (AUTO) 5.6 K/uL (1.8-8.9); NEUTROPHILS % (AUTO) 75.9 % (38.5-71.5); PLATELET COUNT (AUTO) 216 K/uL (179-408); RED BLOOD CELL COUNT(AUTO) 2.81 MIL/uL (3.63-4.92); WHITE BLOOD COUNT (AUTO) 7.3 K/uL (3.8-11.8)
[2018-02-10 07:37] LABS: BILIRUBIN,TOTAL 0.3 mg/dL (0.2-1.0); CREATININE 2.6 mg/dL (0.6-1.3); MAGNESIUM 1.7 mg/dL (1.8-2.4); PHOSPHOROUS 4.1 mg/dL (2.5-4.9); POTASSIUM 3.9 mmol/L (3.5-5.1); TOTAL PROTEIN, SERUM 6.8 g/dL (6.4-8.2)
--- NOTE | 2018-02-10 07:50 | NUR ---
Pt back from O.R. dept accompanied by x2 OR staff. Pt not stable for surgery secondary to developing CHF per Dr. Ferrari. Pt in bed A&O x4. Son at bedside. VS: 98.5 82 18 94% O2 Sat on 2L/min 138/65. Denies pain at this time. No acute resp distress noted. Will follow up with MD for further orders.
--- NOTE | 2018-02-10 07:52 | NUR ---
Received call from anesthesiologist and urologist, Dr Ferrari. Dr's recommended patient to be transferred to medical floor. Planned surgical procedure did not push through because of patient condition as per anesthesiologist.
[2018-02-10] MEDS: buPROPion XL 150 MG TAB.SR.24H PO SCH (08:32)
[2018-02-10] MEDS: TECFIDERA 240 MG PO SCH (08:33)
[2018-02-10] MEDS: METOPROLOL TARTRATE 25 MG TABLET PO SCH (08:33)
[2018-02-10] MEDS: SODIUM BICARBONATE 650 MG TABLET PO SCH (08:34)
--- NOTE | 2018-02-10 08:45 | NUR ---
Transferred pt to Tele via hospital bed accompanied by x3 staff and son at bedside. No acute distress noted at this time. Left with all her belongings and discharge information. Full SBAR report given to DENISE Virk. Answered all questions.
[2018-02-10 08:50] VITALS: BP 138/65
[2018-02-10] MEDS ORDERED: FUROSEMIDE 40 MG TABLET PO SCH (09:00)
== END 2018-02-10 08:45 | disposition short-term general hospital (02) | DRG 947 ==
PROVIDERS: ADMIT Physical Medicine & Rehabilitation Pain Medicine; ATTEND Physical Medicine & Rehabilitation Pain Medicine
DX: R53.81 Other malaise (principal); I50.31 Acute diastolic (congestive) heart failure; B02.30 Zoster ocular disease, unspecified; N18.4 Chronic kidney disease, stage 4 (severe); I13.0 Hypertensive heart and chronic kidney disease with heart failure and stage 1 through stage 4 chronic kidney disease, or unspecified chronic kidney disease; N13.30 Unspecified hydronephrosis; N17.9 Acute kidney failure, unspecified; D50.9 Iron deficiency anemia, unspecified; E03.9 Hypothyroidism, unspecified; G35 Multiple sclerosis; M81.0 Age-related osteoporosis without current pathological fracture; K80.20 Calculus of gallbladder without cholecystitis without obstruction; K22.70 Barrett's esophagus without dysplasia; I48.91 Unspecified atrial fibrillation; E83.42 Hypomagnesemia; E87.5 Hyperkalemia; F32.9 Major depressive disorder, single episode, unspecified; I95.9 Hypotension, unspecified; F41.9 Anxiety disorder, unspecified; I48.0 Paroxysmal atrial fibrillation; K59.03 Drug induced constipation; T50.905A Adverse effect of unspecified drugs, medicaments and biological substances, initial encounter; Y92.89 Other specified places as the place of occurrence of the external cause; Z90.49 Acquired absence of other specified parts of digestive tract; N31.9 Neuromuscular dysfunction of bladder, unspecified; M89.9 Disorder of bone, unspecified; Z88.0 Allergy status to penicillin
CPT/HCPCS: 36415; 71045; 76770; 83550; 83735; 83970; 84100; 84156; 84300; 85025; 87077; 87086; 92523; 92526; 92610; 93005; 93307; 94664; 97110; 97112; 97116; 97530; 97535; A4217; A4663; A9150; J0885; J3475; J3590

== ENCOUNTER 2018-02-10 09:43 | Inpatient (IN) | payer MEDICARE, BC ==
[~2018-02-10] VITALS: Ht 157.5 cm; Wt 43.6 kg
--- NOTE | 2018-02-10 09:10 | NUR ---
PT ARRIVED VIA BED FROM ARU, RA MIRANDA AT BEDSIDE, PT C/O SOB AND DIAPHORETIC. MD NOTIFIED O2 2L NASAL CANNULA APPLIED. ICE PACK APPLIED, BED RAISED TO HIGH FOWLERS POSITION.PT NOT IN DISTRESS AT THIS TIME. CONTINUE TO MONITOR PT.
[~2018-02-10 09:43] MED LIST changes: -ACET325S8 PO; -ACET325T53 PO; -AMIO200T6 PO; -BISA10SU12 RC; -BISA5TAB13 PO; -ENOX30DI SUBCUT; -FURO10VI IV; -IOHEXOL 300MG/ML 50 ML VIAL ONE; -IPRA0.2S6 NEB; -LACT1CAP57 PO; -LEVA0.6320 NEB; -LIDO35.4 TOP; -MENT71OI TOP; -OXYC5TAB3 PO; -POLY17PO4 PO; -PREG50CA PO; -SEVE800T7 PO
[2018-02-10 10:01] VITALS: BP 125/66
[2018-02-10] MEDS ORDERED: MIRALAX 17 GM POWD.PACK PO PRN (10:15)
[2018-02-10] MEDS ORDERED: BISACODYL 5 MG TABLET.DR PO ONE (10:15)
[2018-02-10] MEDS ORDERED: PREGABALIN 25 MG CAPSULE PO PRN (10:15)
[2018-02-10] MEDS ORDERED: ACETAMINOPHEN 325 MG TABLET PO PRN (10:15)
[2018-02-10] MEDS ORDERED: BISACODYL 10 MG SUPP.RECT RC ONE (10:15)
[2018-02-10] MEDS ORDERED: OXYCODONE HCL 10 MG TAB.SR.12H PO PRN (10:15)
[2018-02-10] MEDS ORDERED: ALBUTEROL SULFATE 1.25 MG/3 ML NEBU NEB PRN (10:15)
[2018-02-10] MEDS ORDERED: FUROSEMIDE 40 MG/4 ML VIAL IV ONE (10:45)
[2018-02-10] MEDS ORDERED: PREGABALIN 50 MG CAPSULE PO PRN (11:00)
[2018-02-10] MEDS ORDERED: BISACODYL 10 MG SUPP.RECT RC PRN (11:15)
[2018-02-10 11:32] VITALS: BP 146/71
[2018-02-10] MEDS: SEVELAMER CARBONATE 800 MG TABLET PO SCH ×2 (12:16→17:27)
[2018-02-10] MEDS: IPRATROPIUM BROMIDE 0.5 MG/2.5 ML NEBU NEB PRN ×2 (13:14→21:25)
[2018-02-10] MEDS ORDERED: LEVOFLOXACIN 500 MG/D5W 500 MG in PREMIXED 1 EACH IV SCH (13:15)
--- NOTE | 2018-02-10 13:24 | NUR ---
PT WAS AFIB HEART RATE 165-170. AFTER ALBUTEROL TREATMENT DR. ANN NOTIFIED. DR. ELIAS NOTIFIED ABOUT REACTION TO ALBUTEROL TREATMENT. CONTINUE TO MONITOR PT.
[2018-02-10] MEDS ORDERED: MAGNESIUM OXIDE 400 MG TABLET PO ONE (13:45)
--- NOTE | 2018-02-10 14:00 | NUR ---
PT HEART RATE 88 SINUS RHYTHM. CONTINUE TO MONITOR.
[2018-02-10] MEDS ORDERED: LEVOFLOXACIN 500 MG/D5W 500 MG in PREMIXED 1 EACH IV ONE (14:30)
[2018-02-10 15:33] VITALS: BP 141/66
[2018-02-10] MEDS ORDERED: AMIODARONE HCL 200 MG TABLET PO SCH (16:00)
[2018-02-10 16:04] LABS: ABG BASE EXCESS -9.5 mmol/L; ABG HCO3 16.3 mmol/L; ABG PCO2 35.1 mmHg (35.0-45.0); ABG PH 7.284 (7.350-7.450); ABG PO2 86.7 mmHg (75.0-100.0); ABG SITE RIGHT RADIAL; ABG TOTAL HEMOGLOBIN 8.5 G/dL (12.0-16.0); MetHb 0.4 % (0.0-1.5); O2Hb 92.9 % (94.0-97.0); VENT MODE Nasal Cannula
--- NOTE | 2018-02-10 16:17 | NUR ---
ABG BLOOD GAS DONE. PT HCO3 16.3, PCO2 35.1, PH 7.284. MD ELIAS NOTIFIED. CONTINUE TO MONITOR PT.
[2018-02-10] MEDS: FUROSEMIDE 40 MG/4 ML VIAL IV SCH (16:30)
[2018-02-10] MEDS: SODIUM BICARBONATE 650 MG TABLET PO SCH (17:28)
[2018-02-10] MEDS: TECFIDERA 240 MG PO SCH (17:29)
--- NOTE | 2018-02-10 17:30 | NUR ---
PT IS AFIB AGAIN HEART RATE 159. NOTIFIED DR. ANN. CONTINUE TO MONITOR.
[2018-02-10] MEDS: LIDOCAINE 5% OINT 35.44 GM TUBE TOP SCH (17:41)
--- NOTE | 2018-02-10 18:32 | NUR ---
PT RESTING IN BED WITH NO SIGNS OF RESPIRATORY DISTRESS AT THIS TIME. CALM, COOPERATIVE, MEDICATION COMPLIANT. SPOKE TO SON RUTH AND GAVE AN UPDATE. PT HAD A ID CONSULT TODAY, AND PT WAS PUSHED FOR TOMORROW DUE TO HER GENERALIZED WEAKNESS. CONTINUE TO MONITOR PT.
[2018-02-10] MEDS ORDERED: AMIODARONE HCL IV 150 MG in IV DEXTROSE 5% 100 ML IV ONE (19:15)
[2018-02-10 20:00] VITALS: BP 126/72
[2018-02-10] MEDS: SERTRALINE HCL 100 MG TABLET PO SCH (20:55)
[2018-02-10] MEDS: METOPROLOL TARTRATE 25 MG TABLET PO SCH (20:55)
[2018-02-10] MEDS ORDERED: TRAZODONE 100 MG TABLET PO SCH (21:00)
--- NOTE | 2018-02-10 21:00 | NUR ---
Received patient awake alert but anxious c/o mcginnis cath site discomfort. No SOB noted denies chest pain. Vital signs stable, Tele sinus rhythm w/ occasional PVCs HR 77 bpm. Amiodarone drip 150 mg IV started as ordered, patient tolerated Sinus rhythm on the monitor. Wet diaper & bladder distention noted. Bladder scan showed 625 ml. Checked mcginnis catheter patency, noted vaginal mucus in the catheter. Mcginnis catheter discontinued. Re-inserted a new mcginnis catheter Fr18, 675 ml mcginnis output obtained. Patient felt relieved post mcginnis reinsertion. Repositioned for comfort. Sponge bath provided. HHNtx given by RT per patient request. Will continue to monitor.
[2018-02-10] MEDS: ENOXAPARIN SODIUM 30 MG/0.3 ML DISP.SYRIN SUBCUT SCH (21:04)
[2018-02-10] MEDS: LEVALBUTEROL HCL NEB 0.63 MG/3 ML NEBU NEB PRN (21:25)
--- NOTE | 2018-02-10 22:00 | NUR ---
Patient converted to sinus rhythm HR 66 bpm on the monitor. Amiodarone drip held for now
[2018-02-11] VITALS (7 sets, daily range): BP systolic 97–138; BP diastolic 56–79
--- NOTE | 2018-02-11 | NUR ---
Noted small amount mcginnis output. Irrigated the mcginnis, patient drain out 400 ml w/ multiple jelly white mucus in mcginnis bag noted. Cardiac moniotr shows NSR.
--- NOTE | 2018-02-11 01:54 | NUR ---
Patient resting comfortably. No sign of distress. Normal sinus rhythm on the monitor.
[2018-02-11 06:23] LABS: BASOPHILS # (AUTO) 0.1 K/uL (0.0-8.0); BASOPHILS % (AUTO) 1.2 % (0.0-2.0); EOSINOPHILS # (AUTO) 0.2 K/uL (0.0-0.7); EOSINOPHILS % (AUTO) 2.8 % (0.0-7.0); HEMOGLOBIN 8.3 g/dL (10.9-14.3); LYMPHOCYTES # (AUTO) 0.9 K/uL (20.0-40.0); LYMPHOCYTES % (AUTO) 11.5 % (20.5-51.5); MEAN CORPUSCULAR HEMOGLOBIN 29.9 uug (24.7-32.8); MEAN CORPUSCULAR HGB CONC 33 g/dL (32.3-35.6); MEAN CORPUSCULAR VOLUME 89.7 fL (75.5-95.3); MONOCYTES # (AUTO) 0.9 K/uL (2.0-10.0); NEUTROPHILS # (AUTO) 5.8 K/uL (1.8-8.9); NEUTROPHILS % (AUTO) 73.5 % (38.5-71.5); PLATELET COUNT (AUTO) 214 K/uL (179-408); RED BLOOD CELL COUNT(AUTO) 2.78 MIL/uL (3.63-4.92); WHITE BLOOD COUNT (AUTO) 7.8 K/uL (3.8-11.8)
[2018-02-11] MEDS: PANTOPRAZOLE SODIUM 40 MG TABLET.DR PO SCH (06:26)
[2018-02-11] MEDS: LEVOTHYROXINE SODIUM 112 MCG TABLET PO SCH (06:26)
[2018-02-11 07:04] LABS: BILIRUBIN,TOTAL 0.3 mg/dL (0.2-1.0); CREATININE 2.5 mg/dL (0.6-1.3); MAGNESIUM 1.5 mg/dL (1.8-2.4); PHOSPHOROUS 4.1 mg/dL (2.5-4.9); POTASSIUM 3.8 mmol/L (3.5-5.1); TOTAL PROTEIN, SERUM 6.7 g/dL (6.4-8.2)
--- NOTE | 2018-02-11 07:15 | NUR ---
Awake at this time, no report of pain, slept well throughout shift. Sinus rhythm on the monitor. Handed off report to Anamika WALKER.
--- NOTE | 2018-02-11 07:20 | NUR ---
RECEIVED PT AWAKE IN BED, NOTED SOME LABORED BREATHING. NO IMMEDIATE S/S OF DISTRESS OR PAIN
[2018-02-11] MEDS: SEVELAMER CARBONATE 800 MG TABLET PO SCH ×3 (08:03→17:07)
[2018-02-11] MEDS ORDERED: FUROSEMIDE 40 MG TABLET PO SCH (09:00)
[2018-02-11] MEDS: SODIUM BICARBONATE 650 MG TABLET PO SCH ×2 (09:30→17:07)
[2018-02-11] MEDS: FUROSEMIDE 40 MG/4 ML VIAL IV SCH (09:30)
[2018-02-11] MEDS: buPROPion XL 150 MG TAB.SR.24H PO SCH (09:30)
[2018-02-11] MEDS: METOPROLOL TARTRATE 25 MG TABLET PO SCH ×2 (09:30→20:58)
[2018-02-11] MEDS: LIDOCAINE 5% OINT 35.44 GM TUBE TOP SCH ×2 (09:31→17:07)
[2018-02-11] MEDS: TECFIDERA 240 MG PO SCH ×2 (09:33→17:07)
[2018-02-11] MEDS: LEVALBUTEROL HCL NEB 0.63 MG/3 ML NEBU NEB PRN (12:05)
[2018-02-11] MEDS: IPRATROPIUM BROMIDE 0.5 MG/2.5 ML NEBU NEB PRN (12:05)
[2018-02-11] MEDS ORDERED: MAGNESIUM SULFATE/D5W 100 ML IV SCH ×2 (12:45→15:45)
[2018-02-11] MEDS ORDERED: POTASSIUM CHLORIDE 50 ML IV SCH (15:45)
[2018-02-11] MEDS ORDERED: AMIODARONE HCL IV 150 MG in IV DEXTROSE 5% 100 ML IV ONE (16:00)
--- NOTE | 2018-02-11 16:00 | NUR ---
INFORMED BY DOCTOR OF PODIATRY THAT HR WAS 150, DR ANN WAS CALLED FOR ORDERS. START BOLUS AMIODARONE BOLUS AND FOLLOW BY AMIODARONE DRIP. TWO NEW IV'S STARTED, 20G ON BOTH RIGHT AND LEFT FOREARM.
[2018-02-11] MEDS: AMIODARONE HCL IV 900 MG in IV DEXTROSE 5% 482 ML IV PRN ×2 (17:02→20:11)
[2018-02-11] MEDS: OXYCODONE HCL 5 MG TABLET PO PRN (17:09)
[2018-02-11] MEDS: BISACODYL 5 MG TABLET.DR PO PRN (17:14)
--- NOTE | 2018-02-11 20:00 | NUR ---
PT IN ROOM ALERT AWAKE IN NO ACUTE DISTRESS. C/O MINIMAL SOB UPON EXERTION. DENIES ANY PAIN OR DISCOMFORT. ABLE TO MAKE NEEDS KNOWN AND FOLLOW SIMPLE COMMANDS. MAINTAINING OXYGEN AT 3L/MIN WITH SAT 95% N/C. CONTINUING ON AMIODARONE DRIP RUNNING 1MG/MIN (33.3ML/HR). F/C INTACT DRAINING CLEAR YELLOW WITH MINIMAL SEDIMENTS. WILL CONTINUE TO MONITOR. CALL LIGHT WITHIN REACH. HOB ELEVATED 30 DEGREES. SINUS RHYTHM PRESENT WITH HR NOTED 64.
[2018-02-11] MEDS: MEROPENEM 500 MG in IV NORMAL SALINE 50 ML IV SCH (20:12)
[2018-02-11] MEDS: SERTRALINE HCL 100 MG TABLET PO SCH (20:44)
[2018-02-11] MEDS: ENOXAPARIN SODIUM 30 MG/0.3 ML DISP.SYRIN SUBCUT SCH (20:49)
[2018-02-11] MEDS ORDERED: LINEZOLID IV 600 MG in PREMIXED 1 EACH IV SCH (21:00)
--- NOTE | 2018-02-11 23:04 | NUR ---
AMIODARONE DRIP CHANGED TO 0.5MG/MIN (16.6ML/HR X 18 HRS). PER PROTOCOL. PT REMINDED OF PLAN OF CARE. WILL CONTINUE TO MONITOR. NO S/S OF RESP DISTRESS. ACCELERATOR SYSTEMS DIRECTOR MAINTAINING SINUS RHYTHM.
[2018-02-12] VITALS: BP 131/68
[2018-02-12] MEDS: LORAZEPAM 2 MG/1 ML VIAL IV PRN ×4 (00:48→22:38)
--- NOTE | 2018-02-12 01:02 | NUR ---
PT NOTED WITH PERIODS OF CONFUSION AND NON COMPLIANT WITH CARE. NOTED HER TRYING TO REMOVE IV SITE TWICE BY 'BITING' TUBING. SITE WAS ALREADY WRAPPED IN [place] DRESSING. PT UNABLE TO FOLLOW PLAN OF CARE REGARDING AMIODARONE. DR SUAREZ NOTIFIED AND ORDERED ATIVAN 0.5MG IVP Q3HR PRN. NOTED AND CARRIED OUT.
[2018-02-12 04:00] VITALS: BP 138/69
--- NOTE | 2018-02-12 06:00 | NUR ---
PT ABLE TO SLEEP WITHOUT ANY INCREASED ANXIETY SINCE RECEIVING ATIVAN IVP PER MD ORDER. IV SITE INTACT TO RIGHT FOREARM MAINTAINING AMIODARONE DRIP 0.5MG (16.6ML/HR) PORTABLE MACHINE CUTTER REMAINED NORMAL SINUS RHYTHM AT 74 HR. OXYGEN SAT NOTED 94% ON 3L/MIN VIA N/C. DENIES ANY PAIN OR DISCOMFORT. F/C IRRIGATED WITH AN OUTPUT OF 650ML THROUGHOUT SHIFT INCLUDING MUCUS YELLOW COLORED SEDIMENTS. HOB ELEVATED 30 DEGREES WITH NEXT DOSE OF MERREM ATB IV TO BE INFUSED. WILL CONTINUE TO MONITOR. CALL LIGHT WITHIN REACH.
[2018-02-12] MEDS: MEROPENEM 500 MG in IV NORMAL SALINE 50 ML IV SCH ×2 (06:01→19:41)
[2018-02-12] MEDS: PANTOPRAZOLE SODIUM 40 MG TABLET.DR PO SCH (06:01)
[2018-02-12] MEDS: LEVOTHYROXINE SODIUM 112 MCG TABLET PO SCH (06:01)
[2018-02-12 06:18] LABS: BASOPHILS # (AUTO) 0.1 K/uL (0.0-8.0); BASOPHILS % (AUTO) 0.9 % (0.0-2.0); EOSINOPHILS # (AUTO) 0.4 K/uL (0.0-0.7); EOSINOPHILS % (AUTO) 4.7 % (0.0-7.0); HEMATOCRIT 27.5 % (31.2-41.9); HEMOGLOBIN 8.9 g/dL (10.9-14.3); LYMPHOCYTES # (AUTO) 0.8 K/uL (20.0-40.0); MEAN CORPUSCULAR HGB CONC 33 g/dL (32.3-35.6); MEAN CORPUSCULAR VOLUME 89.3 fL (75.5-95.3); NEUTROPHILS # (AUTO) 6.5 K/uL (1.8-8.9); NEUTROPHILS % (AUTO) 74.4 % (38.5-71.5); PLATELET COUNT (AUTO) 247 K/uL (179-408); RED BLOOD CELL COUNT(AUTO) 3.08 MIL/uL (3.63-4.92); WHITE BLOOD COUNT (AUTO) 8.8 K/uL (3.8-11.8)
--- NOTE | 2018-02-12 06:25 | NUR ---
PER LAB [facility], BLOOD CULTURE POSITIVE. GRAM + COCCI IN PAIRS & CHANGE. WILL INFORM DR SUAREZ.
[2018-02-12] MEDS ORDERED: ALBUTEROL SULFATE 1.25 MG/3 ML NEBU NEB PRN (08:00)
[2018-02-12 08:06] LABS: *BILIRUBIN,URIN NEGATIVE (NEGATIVE); *BLOOD, URINE 1+ (NEGATIVE); *CLARITY,URINE CLEAR (CLEAR); *COLOR,URINE YELLOW (YELLOW); *KETONES,URINE NEGATIVE (NEGATIVE); *PROTEIN,URINE TRACE (NEGATIVE); *UROBILINOGEN,URINE 0.2 E.U./dl (NORMAL); LEUKOCYTE ESTERASE ,URINE 3+ (NEGATIVE); NITRITE, URINE NEGATIVE (NEGATIVE); UGLUCOSE NEGATIVE (NEGATIVE)
[2018-02-12 08:13] LABS: BACTERIA,URINE MODERATE /HPF (NONE SEEN); SQUAMOUS EPITHELIAL CELL,UR FEW /HPF (NONE SEEN)
[2018-02-12] MEDS: buPROPion XL 150 MG TAB.SR.24H PO SCH (08:16)
[2018-02-12] MEDS: SEVELAMER CARBONATE 800 MG TABLET PO SCH ×3 (08:16→18:21)
[2018-02-12] MEDS: FUROSEMIDE 40 MG/4 ML VIAL IV SCH (08:16)
--- NOTE | 2018-02-12 08:36 | NUR ---
PATIENT ANXIOUS AND EXHIBITING SIGNS OF SOB, WITH USAGE OF ACCESSORY MUSCLES. TELE MONITOR SHOWS UNCONTROLLED ATRIAL FIBRILLATION WITH HR OF 131, RR 26, BP 138/69, 92% O2 SAT. HOB RAISED. INSTRUCT PATIENT TO DO PURSED LIP BREATHING. PAGED RT FOR BREATHING TREATMENT. ATIVAN 0.5 MG GIVEN FOR ANXIETY. WILL CONTINUE TO MONITOR PATIENT.
[2018-02-12] MEDS: IPRATROPIUM BROMIDE 0.5 MG/2.5 ML NEBU NEB PRN ×3 (08:42→20:05)
[2018-02-12] MEDS: LEVALBUTEROL HCL NEB 0.63 MG/3 ML NEBU NEB PRN ×3 (08:42→20:05)
[2018-02-12] MEDS: METOPROLOL TARTRATE 25 MG TABLET PO SCH ×2 (08:55→20:50)
[2018-02-12] MEDS: TECFIDERA 240 MG PO SCH ×2 (08:55→17:34)
[2018-02-12] MEDS: SODIUM BICARBONATE 650 MG TABLET PO SCH ×2 (08:55→17:35)
[2018-02-12] MEDS: LIDOCAINE 5% OINT 35.44 GM TUBE TOP SCH ×2 (08:56→17:36)
--- NOTE | 2018-02-12 09:35 | NUR ---
REASSESSED PT, ON TELE WITH SINUS RHYTHM WITH HR OF 68, BP OF 108/59, NO SOB, DENIES CHEST PAIN. TREATMENT EFFECTIVE.
[2018-02-12 11:49] VITALS: BP 108/59
[2018-02-12] MEDS ORDERED: OXYCODONE HCL 10 MG TAB.SR.12H PO PRN (12:15)
[2018-02-12] MEDS ORDERED: LEVOFLOXACIN 250MG /D5W 250 MG in PREMIXED 1 EACH IV SCH (14:00)
[2018-02-12 15:45] VITALS: BP 141/81
--- NOTE | 2018-02-12 16:43 | NUR ---
PATIENT ANXIOUS AND RESTLESS. PT EXHIBITING SHORTNESS OF BREATH. ON TELE WITH AFIB RHYTHM HR OF 139, BP OF 141/81, 25 RR. ATIVAN 0.5 MG ADMINISTERED. PT REQUESTED BREATHING TREATMENT. RT NOTIFIED. WILL CONTINUE TO MONITOR.
--- NOTE | 2018-02-12 16:58 | NUR ---
REASSESSED PT, TELE MONITOR SHOWS SINUS RHYTHM WITH HR OF 70. NO SOB AND DENIES CHEST PAIN. BREATHING TREATMENT EFFECTIVE.
--- NOTE | 2018-02-12 17:15 | NUR ---
PHONE CALL MADE TO DR. ANN IN REGARD TO AMIODARONE DRIP 0.5MG/MIN = 16.6ML/HR. REPORTED PATIENTS HEART RHYTHM CHANGES FROM SINUS TO UNCONTROLLED AFIB AND BACK TO SINUS. ORDER RECEIVED TO D/C AMIODARONE DRIP AND START AMIODARONE PO 400MG BID THIS EVENING. ORDERS READ BACK AND CARRIED OUT.
[2018-02-12] MEDS: AMIODARONE HCL 200 MG TABLET PO SCH (18:21)
--- NOTE | 2018-02-12 18:43 | NUR ---
UNABLE TO COLLECT SPUTUM AND STOOL SAMPLE THROUGHOUT THE SHIFT. WILL ENDORSE TO NEXT SHIFT.
--- NOTE | 2018-02-12 19:38 | NUR ---
PATIENT RESTING COMFORTABLY ON BED. ON TELE SINUS RHYTHM WITH HR OF 75. NO SOB, DENIES CHEST PAIN. SAFETY MEASURE MAINTAINED AT ALL TIMES.
[2018-02-12 20:02] VITALS: BP 139/63
--- NOTE | 2018-02-12 20:38 | NUR ---
Resting in bed comfortably. No adverse reactions to Merrem IV. Both sites intact and patent. Pt continues to Sat 95% on O2 at 3lpm via NC. Sinus Rhythm on monitor. Whalen drained 175cc thus far this shift clear yellow urine. Call light in reach. Continues to occasionally verbalize delusions. Will contineu to monitor
[2018-02-12] MEDS: SERTRALINE HCL 100 MG TABLET PO SCH (20:53)
[2018-02-12] MEDS: ENOXAPARIN SODIUM 30 MG/0.3 ML DISP.SYRIN SUBCUT SCH (20:53)
--- NOTE | 2018-02-12 21:41 | NUR ---
Assisted CROWN ASSEMBLY MACHINE OPERATOR to reposition patient higher up in bed. BP 145/69 hr 69 O2 saturation 98% on O2 at 2lpm. Resting comfortably in bed. Environmental stimuli minimized. No complaints of pain at this time.
--- NOTE | 2018-02-12 22:42 | NUR ---
Attempting to get out of the bed. Patient anxious. Ativan administered as ordered. Will continue to monitor.
--- NOTE | 2018-02-12 22:45 | NUR ---
Noted mcginnis catheter not draining. Flushed mcginnis cath and noted with mucous in urine. Drained 200cc of clear urine with mucous
--- NOTE | 2018-02-12 23:41 | NUR ---
Noted that patient in sustained A-Fib with a rate between 120-140bpm . No SOB noted at this time. Paged Dr. Robert. Awaiting call back.
[2018-02-12] MEDS: OXYCODONE HCL 5 MG TABLET PO PRN (23:51)
--- NOTE | 2018-02-12 23:56 | NUR ---
Complaining of generalized pain 03/17. Pain medication administered as ordered. Will reassess. A-fib continues to be sustained at 120-130bpm. No other complaints of distress noted.
[2018-02-13 00:10] VITALS: BP 138/91
--- NOTE | 2018-02-13 00:13 | NUR ---
Pain medication effective. No signs and symptoms of SOB noted. O2 saturation 96% on O2 at 2lpm. Noted patient back to sinus rhythm with a rate of 72. Will continue to monitor.
--- NOTE | 2018-02-13 02:00 | NUR ---
Sinus rhythm to a-fib periodically. MD aware no sob noted. O2 at 2lpm sating 96%. No s/s of pain. Call light in reach. Will continue plan of care.
--- NOTE | 2018-02-13 03:21 | NUR ---
Whalen draining clear yellow urine. Continues to have mucous and sediment in urine.
[2018-02-13 04:17] VITALS: BP 124/99
--- NOTE | 2018-02-13 05:07 | NUR ---
PT REMAINING SINUS RHYTHM ON OUTCOMES SPECIALIST AT THIS TIME WITH HR 74. NO EPISODES OF INCREASED CONFUSION OR ANXIETY NOTED. PT STILL PT MAINTAINING OXYGEN SATURATION 3L/MIN VIA N/C AT 91%. F/C DRAINING WELL WITH CURRENT PALE MUCUS COLORED. NO ADVERSE EFFECT TO PREVIOUS IV ATB MERREM. HOB ELEVATED 45 DEGREES AND REPOSITIONED. WILL CONTINUE TO MONITOR.
[2018-02-13] MEDS: LORAZEPAM 2 MG/1 ML VIAL IV PRN ×3 (05:43→23:33)
--- NOTE | 2018-02-13 06:15 | NUR ---
PT NOTED WITH ANXIOUS WITH ALUMNI RELATIONS COORDINATOR A-FIB CONTROLLED. ATIVAN GIVEN. WILL CONTINUE TO MONITOR.
--- NOTE | 2018-02-13 06:30 | NUR ---
SIDE DOOR WORKER SHOWING SINUS RHYTHM WITH HR 74 AT THIS TIME. OVERNIGHT, PT WAS NOTED SINUS RHYTHM WITH PERIODS OF A-FIB CONTROLLED RANGING 110 BPM - 140S. PT REMINDED OF PLAN OF CARE AND NEEDS FREQUENT REORIENTING. WILL CONTINUE TO MONITOR. REPOSITIONED SUPINE WITH HOB 45 DEGREES. 96% SAT NOTED ON PULSE OX.
[2018-02-13 06:39] LABS: BASOPHILS # (AUTO) 0.1 K/uL (0.0-8.0); EOSINOPHILS # (AUTO) 0.3 K/uL (0.0-0.7); EOSINOPHILS % (AUTO) 2.7 % (0.0-7.0); HEMATOCRIT 27.9 % (31.2-41.9); HEMOGLOBIN 9.2 g/dL (10.9-14.3); LYMPHOCYTES # (AUTO) 0.7 K/uL (20.0-40.0); LYMPHOCYTES % (AUTO) 6.8 % (20.5-51.5); MEAN CORPUSCULAR HEMOGLOBIN 29.5 uug (24.7-32.8); MEAN CORPUSCULAR HGB CONC 33 g/dL (32.3-35.6); MEAN CORPUSCULAR VOLUME 89.7 fL (75.5-95.3); MONOCYTES % (AUTO) 9.5 % (0.0-11.0); NEUTROPHILS # (AUTO) 8.1 K/uL (1.8-8.9); PLATELET COUNT (AUTO) 259 K/uL (179-408); RED BLOOD CELL COUNT(AUTO) 3.11 MIL/uL (3.63-4.92); WHITE BLOOD COUNT (AUTO) 10.1 K/uL (3.8-11.8)
[2018-02-13 06:42] LABS: BILIRUBIN,TOTAL 0.3 mg/dL (0.2-1.0); CREATININE 2.3 mg/dL (0.6-1.3); MAGNESIUM 1.7 mg/dL (1.8-2.4); PHOSPHOROUS 4.5 mg/dL (2.5-4.9); POTASSIUM 3.6 mmol/L (3.5-5.1); TOTAL PROTEIN, SERUM 7.1 g/dL (6.4-8.2)
[2018-02-13 07:37] VITALS: BP 118/86
[2018-02-13] MEDS: PANTOPRAZOLE SODIUM 40 MG TABLET.DR PO SCH (07:55)
[2018-02-13] MEDS: LEVOTHYROXINE SODIUM 112 MCG TABLET PO SCH (07:55)
[2018-02-13] MEDS: MEROPENEM 500 MG in IV NORMAL SALINE 50 ML IV SCH ×2 (07:55→20:12)
[2018-02-13] MEDS: SEVELAMER CARBONATE 800 MG TABLET PO SCH ×3 (08:08→17:40)
[2018-02-13] MEDS: buPROPion XL 150 MG TAB.SR.24H PO SCH (08:08)
[2018-02-13] MEDS: AMIODARONE HCL 200 MG TABLET PO SCH ×2 (08:09→17:41)
[2018-02-13] MEDS: METOPROLOL TARTRATE 25 MG TABLET PO SCH ×2 (08:10→20:39)
[2018-02-13] MEDS: FUROSEMIDE 40 MG/4 ML VIAL IV SCH (08:11)
[2018-02-13] MEDS: SODIUM BICARBONATE 650 MG TABLET PO SCH ×2 (08:11→17:41)
[2018-02-13] MEDS: LIDOCAINE 5% OINT 35.44 GM TUBE TOP SCH ×2 (08:11→17:41)
[2018-02-13] MEDS: TECFIDERA 240 MG PO SCH ×2 (08:11→17:41)
[2018-02-13] MEDS: IPRATROPIUM BROMIDE 0.5 MG/2.5 ML NEBU NEB PRN ×2 (10:21→18:53)
[2018-02-13] MEDS: LEVALBUTEROL HCL NEB 0.63 MG/3 ML NEBU NEB PRN ×2 (10:21→18:53)
[2018-02-13 11:40] VITALS: BP 116/63
--- NOTE | 2018-02-13 12:00 | NUR ---
PATIENT REFUSED TO EAT. UNABLE TO ADMINISTER RENVELA 800MG SINCE MEDICATION NEEDS TO BE TAKEN WITH FOOD.
--- NOTE | 2018-02-13 12:30 | NUR ---
PATIENT UNCOOPERATIVE AND DECLINED CT CHEST W/O CONTRAST. TEST WAS UNABLE TO BE PERFORMED.
--- NOTE | 2018-02-13 13:28 | NUR ---
PATIENT PERIODICALLY FROM SINUS RHYTHM 70s HR TO AFIB UNCONTROLLED AT 130s HR AND CURRENTLY ON THE 3RD CONVERSION. PATIENT SHOWS SOB. PATIENT ASYMPTOMATIC ON UNCONTROLLED AFIB. O2 SAT OF 99%. HOB BED RAISED AND MAINTAINED. WILL CONTINUE TO MONITOR. KEPT CALL LIGHT WITHIN REACH
--- NOTE | 2018-02-13 14:00 | NUR ---
PER PK ORTIZ, HAVE RT TO INDUCED COUGHING FOR SPUTUM CULTURE. RT NOTIFIED AND WILL FOLLOW UP.
[2018-02-13] MEDS ORDERED: MAGNESIUM SULFATE/D5W 100 ML IV SCH (15:00)
[2018-02-13 15:42] VITALS: BP 131/72
[2018-02-13] MEDS ORDERED: AMIODARONE HCL 200 MG TABLET PO SCH (17:00)
[2018-02-13] MEDS ORDERED: FOSFOMYCIN TROMETHAMINE 3 GM PACKET PO ONE (18:30)
--- NOTE | 2018-02-13 18:30 | NUR ---
RT HERE TO GIVE BREATHING TREATMENT. PER RT, INSTRUCTED PATIENT TO TRY INDUCING COUGH, PATIENT AGREEABLE WITH PLAN.
[2018-02-13] MEDS: OXYCODONE HCL 5 MG TABLET PO PRN (18:33)
--- NOTE | 2018-02-13 18:57 | NUR ---
pharmacy clinical notes ( vancomycin dosing); S: 67 yo female with DX of UTI; also on merrem and MD ordered one dose of fosfomycin O:BUN/SCR 43/2.3; WBC 10.1, TEMP 97.9, CRCL 17.9, DOSING WT 102 LBS UC + for E. faecalis sens. to ampicillin ( pt has penicillin allergy) and Macrobid (crcl 17.9)==> MD ordered Vancomycin A/P: Due to compromised renal fxn will dose vanco based on level. Will give one dose of 750 mg tonight RX will monitor the renal fxn and will order level and subsequent doses.
[2018-02-13 20:00] VITALS: BP 120/78
[2018-02-13] MEDS ORDERED: VANCOMYCIN IV 750 MG in IV DEXTROSE 5% 250 ML IV ONE (20:00)
--- NOTE | 2018-02-13 20:00 | NUR ---
PT IN ROOM ALERT AWAKE IN NO RESP DISTRESS. INTERNATIONAL TRADE ANALYST SHOWING SINUS RHYTHM WITH HR NOTED 74. PT TO START ON VANCOMYCIN AND MERREM ATB IV. PHARMACY IS AWARE. MAINTAINING OXYGEN 3L/MIN WITH 98%. F/C DRAINING WELL. PT REPOSITIONED WITH CALL LIGHT WITHIN REACH. WILL CONTINUE TO MONITOR. BP 120/78 T 98.9.
[2018-02-13] MEDS: SERTRALINE HCL 100 MG TABLET PO SCH (20:39)
[2018-02-13] MEDS: ENOXAPARIN SODIUM 30 MG/0.3 ML DISP.SYRIN SUBCUT SCH (20:40)
[2018-02-13] MEDS: BISACODYL 5 MG TABLET.DR PO PRN (21:52)
--- NOTE | 2018-02-13 23:40 | NUR ---
PT ATTEMPTING TO REMOVE F/C AND SLIDING OUT OF BED. PT NEEDS FREQUENT REORIENTATION AND SAFETY MEASURES ENCOURAGED. PT REPOSITIONED. ATIVAN GIVEN. WILL CONTINUE TO MONITOR.
[2018-02-14] VITALS: BP 131/74
--- NOTE | 2018-02-14 00:45 | NUR ---
PT IN ROOM ALERT AWAKE ALERT IN NO ACUTE DISTRESS. ELECTRIC METER TESTER SHOP SHOWING A-FIB CONTROLLED WITH HR 110-130. PT IS ASYMPTOMATIC. BP 131/74. R 18. T 98.6 O2 SAT 96%. WILL CONTINUE TO MONITOR.
--- NOTE | 2018-02-14 01:22 | NUR ---
SINUS RHYTHM NOTED ON CHILD NUTRITION MANAGER WITH HR 73. WILL CONTINUE TO MONITOR.
[2018-02-14 04:00] VITALS: BP 135/61
--- NOTE | 2018-02-14 06:00 | NUR ---
PT SINUS RHYTHM AT THIS TIME. HAD 2-3 EPISODES FROM SINUS RHYTHM TO A-FIB SUSTAINED WITH HR 110-130S. PT IS ASYMPTOMATIC AND DENIES ANY SOB OR CHEST PAIN. PT NEEDS FREQUENT FREORIENTATION AND REMINDERS REGARDING PLAN OF CARE. MAINTAINING OXYGEN AT 3L/MIN WITH O2 SAT 98%. HOB ELEVATED 30 DEGREES. NO ADVERSE REACTION TO RECENT IV ATB VANCOMYCIN THERAPY. WILL CONTINUE TO MONITOR. CALL LIGHT WITHIN REACH.
[2018-02-14 06:58] LABS: BASOPHILS # (AUTO) 0.1 K/uL (0.0-8.0); EOSINOPHILS # (AUTO) 0.5 K/uL (0.0-0.7); EOSINOPHILS % (AUTO) 4.1 % (0.0-7.0); HEMATOCRIT 30.3 % (31.2-41.9); HEMOGLOBIN 9.9 g/dL (10.9-14.3); LYMPHOCYTES # (AUTO) 0.7 K/uL (20.0-40.0); LYMPHOCYTES % (AUTO) 6.2 % (20.5-51.5); MEAN CORPUSCULAR HEMOGLOBIN 29.3 uug (24.7-32.8); MEAN CORPUSCULAR HGB CONC 33 g/dL (32.3-35.6); MEAN CORPUSCULAR VOLUME 89.6 fL (75.5-95.3); MONOCYTES % (AUTO) 9.2 % (0.0-11.0); NEUTROPHILS % (AUTO) 79.5 % (38.5-71.5); PLATELET COUNT (AUTO) 296 K/uL (179-408); RED BLOOD CELL COUNT(AUTO) 3.39 MIL/uL (3.63-4.92); WHITE BLOOD COUNT (AUTO) 11.3 K/uL (3.8-11.8)
[2018-02-14 06:59] LABS: BILIRUBIN,TOTAL 0.4 mg/dL (0.2-1.0); CREATININE 2.1 mg/dL (0.6-1.3); PHOSPHOROUS 3.4 mg/dL (2.5-4.9); POTASSIUM 3.4 mmol/L (3.5-5.1); TOTAL PROTEIN, SERUM 7.3 g/dL (6.4-8.2)
[2018-02-14 07:40] VITALS: BP 143/66
--- NOTE | 2018-02-14 08:00 | NUR ---
RESTING IN BED WITH SLIGHT CONFUSION, NOTED WITH SLIGHT SOB ON EXERTION. 02 3L NC MAINTAINED SATURATING 95%
[2018-02-14] MEDS: MEROPENEM 500 MG in IV NORMAL SALINE 50 ML IV SCH ×2 (08:27→18:04)
[2018-02-14] MEDS: FUROSEMIDE 40 MG/4 ML VIAL IV SCH (08:28)
[2018-02-14] MEDS: AMIODARONE HCL 200 MG TABLET PO SCH ×2 (08:28→16:17)
[2018-02-14] MEDS: SEVELAMER CARBONATE 800 MG TABLET PO SCH ×3 (08:28→16:17)
[2018-02-14] MEDS: PANTOPRAZOLE SODIUM 40 MG TABLET.DR PO SCH (08:29)
[2018-02-14] MEDS: LEVOTHYROXINE SODIUM 112 MCG TABLET PO SCH (08:29)
[2018-02-14] MEDS: buPROPion XL 150 MG TAB.SR.24H PO SCH (08:29)
[2018-02-14] MEDS: SODIUM BICARBONATE 650 MG TABLET PO SCH ×2 (08:30→16:18)
[2018-02-14] MEDS: TECFIDERA 240 MG PO SCH ×2 (08:30→16:23)
[2018-02-14] MEDS: METOPROLOL TARTRATE 25 MG TABLET PO SCH ×2 (08:30→20:21)
[2018-02-14] MEDS: Z GUARD REMEDY PASTE 57 GM TUBE TOP PRN (08:31)
[2018-02-14] MEDS: LIDOCAINE 5% OINT 35.44 GM TUBE TOP SCH ×2 (08:31→16:22)
[2018-02-14] MEDS: LEVALBUTEROL HCL NEB 0.63 MG/3 ML NEBU NEB PRN (08:39)
[2018-02-14] MEDS: IPRATROPIUM BROMIDE 0.5 MG/2.5 ML NEBU NEB PRN (08:39)
--- NOTE | 2018-02-14 10:00 | NUR ---
SEEN BY DR ELIAS SEE NOTES
--- NOTE | 2018-02-14 10:11 | NUR ---
Pharmacy clinical notes ( vancomycin dosing); S: To continue vanco dosing for this 67 yo female with DX of UTI (PCN allergy) O:BUN/SCR 37/2.1; WBC 11.3, TEMP 98.8 UC + for E. faecalis sens. to ampicillin ( pt has penicillin allergy) and Macrobid (crcl 17.9)==> MD ordered Vancomycin A/P: Due to unstable srcr, will continue to dose by fall off level. Patient received vanco 750 mg IVPB x1 dose on 02/13 at 2100. Will check vanco random level today at 1800 & dose if needed. Will follow up Addendum: 02/14/18 at 1852 by LATONIA REINA RANDOM VANCOMYCIN LEVEL 10 WILL ORDER VANCOMYCIN 750MG IVPB X 1 TODAY
[2018-02-14 11:20] VITALS: BP 127/66
[2018-02-14] MEDS ORDERED: POTASSIUM CHLORIDE 10 MEQ TAB.PRT.SR PO ONE (11:45)
--- NOTE | 2018-02-14 12:21 | NUR ---
SEEN BY DR HUANG WITH ORDERS, SEE NOTES
[2018-02-14 15:03] VITALS: BP 144/69
[2018-02-14 19:00] VITALS: BP 120/69
[2018-02-14] MEDS ORDERED: VANCOMYCIN IV 750 MG in IV DEXTROSE 5% 250 ML IV ONE (20:00)
--- NOTE | 2018-02-14 20:00 | NUR ---
NSG: PT RECEIVED A/O X 2. NO ACUTE DISTRESS NOTED. DENIES DISCOMFORT. LUNGS SOUND DIMINISHED TO AUSCULTATE. ON 3L O2 VIA NC SATURATING AT 96%. HOWEVER, TELE, UNCONTROLLED AFIB 111-130'S, PT A BIT ANXIOUS. DVT PUMPS IN PLACE. BED ALARM ON. CALL LIGHT WITHIN REACH. CONT TO MONITOR.
[2018-02-14] MEDS: ENOXAPARIN SODIUM 30 MG/0.3 ML DISP.SYRIN SUBCUT SCH (20:17)
[2018-02-14] MEDS: LORAZEPAM 2 MG/1 ML VIAL IV PRN (20:18)
[2018-02-14] MEDS: SERTRALINE HCL 100 MG TABLET PO SCH (20:18)
[2018-02-15] VITALS: BP 108/73
--- NOTE | 2018-02-15 | NUR ---
nsg: pt is awake, anxious. tele, uncontrolled afib 110-120's. will medicate medicate with ativan prn.
[2018-02-15] MEDS: LORAZEPAM 2 MG/1 ML VIAL IV PRN ×2 (00:31→23:34)
[2018-02-15 04:00] VITALS: BP 143/57
--- NOTE | 2018-02-15 06:23 | NUR ---
nsg: all needs attended. f/c needed to be irrigated due to large amount of sediments bec f/c not draining well. tele, SR at this time. cont to monitor.
[2018-02-15 06:44] LABS: BASOPHILS # (AUTO) 0.1 K/uL (0.0-8.0); BASOPHILS % (AUTO) 0.8 % (0.0-2.0); EOSINOPHILS # (AUTO) 0.6 K/uL (0.0-0.7); EOSINOPHILS % (AUTO) 5.9 % (0.0-7.0); HEMATOCRIT 31.4 % (31.2-41.9); HEMOGLOBIN 10.3 g/dL (10.9-14.3); LYMPHOCYTES # (AUTO) 1.1 K/uL (20.0-40.0); LYMPHOCYTES % (AUTO) 10.6 % (20.5-51.5); MEAN CORPUSCULAR HEMOGLOBIN 29.3 uug (24.7-32.8); MEAN CORPUSCULAR HGB CONC 33 g/dL (32.3-35.6); MEAN CORPUSCULAR VOLUME 88.9 fL (75.5-95.3); MONOCYTES % (AUTO) 9.3 % (0.0-11.0); NEUTROPHILS # (AUTO) 7.6 K/uL (1.8-8.9); NEUTROPHILS % (AUTO) 73.4 % (38.5-71.5); PLATELET COUNT (AUTO) 344 K/uL (179-408); RED BLOOD CELL COUNT(AUTO) 3.53 MIL/uL (3.63-4.92); WHITE BLOOD COUNT (AUTO) 10.3 K/uL (3.8-11.8)
[2018-02-15 06:58] LABS: CREATININE 1.8 mg/dL (0.6-1.3); MAGNESIUM 1.8 mg/dL (1.8-2.4); PHOSPHOROUS 3.5 mg/dL (2.5-4.9); POTASSIUM 3.5 mmol/L (3.5-5.1)
[2018-02-15] MEDS: PANTOPRAZOLE SODIUM 40 MG TABLET.DR PO SCH (07:08)
[2018-02-15] MEDS: MEROPENEM 500 MG in IV NORMAL SALINE 50 ML IV SCH ×2 (07:08→17:34)
[2018-02-15] MEDS: LEVOTHYROXINE SODIUM 112 MCG TABLET PO SCH (07:08)
[2018-02-15 07:33] VITALS: BP 133/72
--- NOTE | 2018-02-15 08:00 | NUR ---
AWAKE ALERT BU CONFUSED X3, SATURATING 95% ON RM. CLOSELY MONITORED
[2018-02-15] MEDS: METOPROLOL TARTRATE 25 MG TABLET PO SCH ×2 (08:06→20:33)
[2018-02-15] MEDS: buPROPion XL 150 MG TAB.SR.24H PO SCH (08:06)
[2018-02-15] MEDS: AMIODARONE HCL 200 MG TABLET PO SCH ×2 (08:07→17:36)
[2018-02-15] MEDS: FUROSEMIDE 40 MG/4 ML VIAL IV SCH (08:07)
[2018-02-15] MEDS: TECFIDERA 240 MG PO SCH ×2 (08:07→17:35)
[2018-02-15] MEDS: SODIUM BICARBONATE 650 MG TABLET PO SCH ×2 (08:08→17:35)
[2018-02-15] MEDS: LIDOCAINE 5% OINT 35.44 GM TUBE TOP SCH ×2 (08:09→17:36)
[2018-02-15] MEDS: Z GUARD REMEDY PASTE 57 GM TUBE TOP PRN (08:09)
[2018-02-15] MEDS: SEVELAMER CARBONATE 800 MG TABLET PO SCH ×3 (08:11→17:36)
[2018-02-15 11:49] VITALS: BP 104/73
--- NOTE | 2018-02-15 12:20 | NUR ---
RESTING COMFORTABLY IN BED WITH SS OF PAIN OR DISTRESS OR AGITATION WITH PAROXYSMAL AFIB. CONTINUE WITH PRN MEDICATION
--- NOTE | 2018-02-15 12:23 | NUR ---
REMAINS WITH O2 AT 3L NC SATURATING 97%
--- NOTE | 2018-02-15 14:44 | NUR ---
Pharmacy clinical notes ( vancomycin dosing); S: To continue vanco dosing for this 67 yo female with DX of UTI (PCN allergy) O:BUN/SCR 35/1.8; WBC 10.3, TEMP 98.1 UC + for E. faecalis sens. to ampicillin ( pt has penicillin allergy) and Macrobid (crcl 17.9)==> MD ordered Vancomycin Random: pending today at 1800 A/P: Due to unstable srcr, will continue to dose by fall off level. Patient received vanco 750 mg IVPB x1 dose on 02/14 @ 2129. Will check vanco random level today at 1800 & dose if needed. Will follow up Addendum: 02/15/18 at 1911 by CHALO REINA VANCO RANDOM LEVEL 16.9 WILL GIVE ANOTHER DOSE OF 750 MG X 1 @ 1999
[2018-02-15] MEDS: LEVALBUTEROL HCL NEB 0.63 MG/3 ML NEBU NEB PRN (15:12)
[2018-02-15] MEDS: IPRATROPIUM BROMIDE 0.5 MG/2.5 ML NEBU NEB PRN (15:12)
[2018-02-15 15:18] VITALS: BP 115/84
--- NOTE | 2018-02-15 18:01 | NUR ---
NO ACUTE CHANGE. SEEN BY HOSPITALIST CONTINUE CURRENT TX PLAN. STILL SHOWING PAROXYSMAL AFIB CONTROLLED. DENIES PAIN OR DISCOMFORT
[2018-02-15 20:00] VITALS: BP 99/58
[2018-02-15] MEDS ORDERED: VANCOMYCIN IV 750 MG in IV DEXTROSE 5% 250 ML IV ONE (20:00)
--- NOTE | 2018-02-15 20:00 | NUR ---
NSG: PT RECEIVED A/O X 2, NO ACUTE DISTRESS NOTED. DENIES DISCOMFORT. TELE, SR. FAMILY AT THE BEDSIDE.
[2018-02-15] MEDS: SERTRALINE HCL 100 MG TABLET PO SCH (20:32)
[2018-02-15] MEDS: ENOXAPARIN SODIUM 30 MG/0.3 ML DISP.SYRIN SUBCUT SCH (20:32)
[2018-02-15] MEDS: LACTOBACILLUS RHAMNOSUS GG 1 EACH CAPSULE PO SCH (20:33)
[2018-02-16] VITALS (8 sets, daily range): BP systolic 94–104; BP diastolic 52–72
--- NOTE | 2018-02-16 | NUR ---
NSG: NO CHANGE IN CONDITION. PT GOES IN AND OUT OF AFIB/ SR. CONT TO MONITOR.
--- NOTE | 2018-02-16 06:00 | NUR ---
NSG: F/C DRAINING LARGE AMOUNT OF MUCUS. IRRIGATED PRN. CONT TO MONITOR. TELE, SR AT THIS TIME.
[2018-02-16] MEDS: LEVOTHYROXINE SODIUM 112 MCG TABLET PO SCH (06:13)
[2018-02-16] MEDS: PANTOPRAZOLE SODIUM 40 MG TABLET.DR PO SCH (06:13)
[2018-02-16] MEDS: MEROPENEM 500 MG in IV NORMAL SALINE 50 ML IV SCH ×2 (06:13→18:14)
[2018-02-16 06:49] LABS: BASOPHILS # (AUTO) 0.1 K/uL (0.0-8.0); BASOPHILS % (AUTO) 1.1 % (0.0-2.0); EOSINOPHILS # (AUTO) 0.7 K/uL (0.0-0.7); EOSINOPHILS % (AUTO) 7.9 % (0.0-7.0); HEMATOCRIT 31.2 % (31.2-41.9); HEMOGLOBIN 10.2 g/dL (10.9-14.3); LYMPHOCYTES # (AUTO) 1.3 K/uL (20.0-40.0); LYMPHOCYTES % (AUTO) 13.9 % (20.5-51.5); MEAN CORPUSCULAR HEMOGLOBIN 29.2 uug (24.7-32.8); MEAN CORPUSCULAR HGB CONC 33 g/dL (32.3-35.6); MEAN CORPUSCULAR VOLUME 89.8 fL (75.5-95.3); MONOCYTES # (AUTO) 1.1 K/uL (2.0-10.0); MONOCYTES % (AUTO) 11.8 % (0.0-11.0); NEUTROPHILS # (AUTO) 6.1 K/uL (1.8-8.9); NEUTROPHILS % (AUTO) 65.3 % (38.5-71.5); PLATELET COUNT (AUTO) 335 K/uL (179-408); RED BLOOD CELL COUNT(AUTO) 3.47 MIL/uL (3.63-4.92); WHITE BLOOD COUNT (AUTO) 9.3 K/uL (3.8-11.8)
[2018-02-16 07:03] LABS: BILIRUBIN,TOTAL 0.4 mg/dL (0.2-1.0); MAGNESIUM 1.7 mg/dL (1.8-2.4); PHOSPHOROUS 3.6 mg/dL (2.5-4.9); POTASSIUM 3.2 mmol/L (3.5-5.1); TOTAL PROTEIN, SERUM 7.2 g/dL (6.4-8.2)
--- NOTE | 2018-02-16 07:30 | NUR ---
RECEIVED PT IN BED, A&O TIMES 4. PT IS ABLE TO VERBALIZE NEEDS. NOTED PLASCENCIA CATH IN PLACE, NC, AND AIR MATTRESS. NO IMMEDIATE S/S OF SOB, PAIN, DISTRESS OR DISCOMFORT
[2018-02-16] MEDS: SEVELAMER CARBONATE 800 MG TABLET PO SCH ×3 (08:49→17:00)
[2018-02-16] MEDS: AMIODARONE HCL 200 MG TABLET PO SCH ×2 (08:50→17:00)
[2018-02-16] MEDS: FUROSEMIDE 40 MG/4 ML VIAL IV SCH (08:50)
[2018-02-16] MEDS: LACTOBACILLUS RHAMNOSUS GG 1 EACH CAPSULE PO SCH ×2 (08:50→21:02)
[2018-02-16] MEDS: buPROPion XL 150 MG TAB.SR.24H PO SCH (08:50)
[2018-02-16] MEDS: METOPROLOL TARTRATE 25 MG TABLET PO SCH ×2 (08:50→21:02)
[2018-02-16] MEDS: LIDOCAINE 5% OINT 35.44 GM TUBE TOP SCH ×2 (08:53→16:28)
[2018-02-16] MEDS: TECFIDERA 240 MG PO SCH ×2 (08:53→17:00)
[2018-02-16] MEDS: SODIUM BICARBONATE 650 MG TABLET PO SCH ×2 (08:53→16:59)
[2018-02-16] MEDS: BISACODYL 5 MG TABLET.DR PO PRN (09:46)
--- NOTE | 2018-02-16 10:35 | NUR ---
Pharmacy clinical notes ( vancomycin dosing); S: To continue vanco dosing for this 67 yo female with DX of UTI (PCN allergy) O:BUN/SCR 40/2.0; WBC 9.3, TEMP 98 UC + for E. faecalis sens. to ampicillin ( pt has penicillin allergy) and Macrobid (crcl 17.9)==> MD ordered Vancomycin Random: pending today at 1800 A/P: Due to unstable srcr, will continue to dose by fall off level. Patient received vanco 750 mg IVPB x1 dose on 02/15 @ 2029. Will check vanco random level today at 1800 & dose if needed. Will follow up Addendum: 02/16/18 at 1835 by LATONIA REINA RANDOM VANCOMYCIN LEVEL 22.3. NO VANCOMYCIN WILL BE ORDER TONIGHT. REPEAT RANDOM LEVEL IN AM
[2018-02-16] MEDS ORDERED: POTASSIUM CHLORIDE 10 MEQ TAB.PRT.SR PO ONE (11:00)
[2018-02-16] MEDS ORDERED: MAGNESIUM SULFATE/D5W 100 ML IV SCH (11:00)
--- NOTE | 2018-02-16 14:15 | NUR ---
PT WAS DISIMPACTED. LARGE BM
--- NOTE | 2018-02-16 19:49 | NUR ---
PLASCENCIA CATH FLUSHED THREE TIMES DURING THE DAY. PT HAS BEEN COMPLIANT WITH NURSING CARE AND MEDICATIONS. NO IMMEDIATE S/S OF SOB, PAIN, DISTRESS OR DISCOMFORT. PT NOTED WITH ACCESSORY MUSCLE USE. PLASCENCIA CATH IN PLACE
--- NOTE | 2018-02-16 20:00 | NUR ---
ROUNDS MADE PATIENT IN BED AWAKE ,ALERT ,NO DISTRESS NOTED BREATHING EVEN AND UNLABORED PER PATIENT SHE WANT HERS PLASCENCIA CATHETER IRRIGATED , DONE IRRIGATED WITH ASEPTIC TECHNIQUE , F/C WITH YELLOWISH URINE WITH SEDIMENTS NOTED CLOUDY SEDIMENTS, PLACED F/C LOWER TO BLADDER AND TO BSD DRAIN , CONTINUE TO MONITOR I AND OS .
[2018-02-16] MEDS: SERTRALINE HCL 100 MG TABLET PO SCH (21:02)
[2018-02-16] MEDS: ENOXAPARIN SODIUM 30 MG/0.3 ML DISP.SYRIN SUBCUT SCH (21:06)
--- NOTE | 2018-02-16 22:47 | NUR ---
PATIENT SEEN BY ANGEL LEWIS AND DISCUSSED PLAN OF CARE AND TREATMENT , PER NURSING UNIT MANAGER TO ENDORSED TO THE DAY RN TO INFORMED MD PATIENT IS VERBALIZING THAT SHE DONT LIKE THE HOW THE AMIODARONE MEDICATION MAKE HER FEEL AND IF SHE CAN HAVE OTHER ALTERATIVE MEDS . WILL ENDORSED RO DAY RN .
[2018-02-17] VITALS: BP 110/56
[2018-02-17] MEDS: LORAZEPAM 2 MG/1 ML VIAL IV PRN (00:44)
--- NOTE | 2018-02-17 00:44 | NUR ---
ROUNDS MADE PATIENT IN BED,NOT SLEEPING AND WORRIED/ ANXIOUS ABOUT THE AMIODARONE MEDICATION PER PATIENT HER PRIMARY MD TOLD HER IF SHE TAKES AMIODARONE SHE SHOULD NOT TAKES THE [place] , OFFERED ATIVAN PATENT AGREES GIVEN 0.5 MG IVP.
[2018-02-17 04:00] VITALS: BP 106/64
[2018-02-17 06:07] LABS: BASOPHILS # (AUTO) 0.2 K/uL (0.0-8.0); BASOPHILS % (AUTO) 2.5 % (0.0-2.0); EOSINOPHILS # (AUTO) 0.7 K/uL (0.0-0.7); EOSINOPHILS % (AUTO) 9.1 % (0.0-7.0); HEMATOCRIT 31.5 % (31.2-41.9); HEMOGLOBIN 10.4 g/dL (10.9-14.3); LYMPHOCYTES # (AUTO) 1.7 K/uL (20.0-40.0); LYMPHOCYTES % (AUTO) 22.2 % (20.5-51.5); MEAN CORPUSCULAR HEMOGLOBIN 29.2 uug (24.7-32.8); MEAN CORPUSCULAR HGB CONC 33 g/dL (32.3-35.6); MEAN CORPUSCULAR VOLUME 88.5 fL (75.5-95.3); MONOCYTES % (AUTO) 13.9 % (0.0-11.0); NEUTROPHILS # (AUTO) 3.9 K/uL (1.8-8.9); NEUTROPHILS % (AUTO) 52.3 % (38.5-71.5); PLATELET COUNT (AUTO) 347 K/uL (179-408); RED BLOOD CELL COUNT(AUTO) 3.55 MIL/uL (3.63-4.92); WHITE BLOOD COUNT (AUTO) 7.5 K/uL (3.8-11.8)
[2018-02-17 06:14] LABS: CREATININE 2.1 mg/dL (0.6-1.3); PHOSPHOROUS 3.9 mg/dL (2.5-4.9); POTASSIUM 3.8 mmol/L (3.5-5.1); VANCOMYCIN,RANDOM 17.6 ug/mL (18.0-26.0)
[2018-02-17] MEDS: MEROPENEM 500 MG in IV NORMAL SALINE 50 ML IV SCH (06:25)
[2018-02-17] MEDS: PANTOPRAZOLE SODIUM 40 MG TABLET.DR PO SCH (06:27)
[2018-02-17] MEDS: LEVOTHYROXINE SODIUM 112 MCG TABLET PO SCH (06:27)
[2018-02-17 07:34] VITALS: BP 103/68
--- NOTE | 2018-02-17 07:41 | NUR ---
RECEIVED PT AWAKE. ALERT AND ORIENTED TIME 3. PT STATES NO PAIN, ABLE TO VERBALIZE NEEDS. NOTED IV ATB RUNNING. AIR MATTRESS IN PLACE, PLASCENCIA CATH AND O2 VIA NC.
[2018-02-17] MEDS: AMIODARONE HCL 200 MG TABLET PO SCH ×2 (08:23→17:15)
[2018-02-17] MEDS: TECFIDERA 240 MG PO SCH ×2 (08:23→17:15)
[2018-02-17] MEDS: SODIUM BICARBONATE 650 MG TABLET PO SCH ×2 (08:23→17:15)
[2018-02-17] MEDS: SEVELAMER CARBONATE 800 MG TABLET PO SCH ×3 (08:24→17:15)
[2018-02-17] MEDS: buPROPion XL 150 MG TAB.SR.24H PO SCH (08:24)
[2018-02-17] MEDS: LACTOBACILLUS RHAMNOSUS GG 1 EACH CAPSULE PO SCH (08:24)
[2018-02-17] MEDS: LIDOCAINE 5% OINT 35.44 GM TUBE TOP SCH ×2 (08:24→17:00)
[2018-02-17] MEDS: METOPROLOL TARTRATE 25 MG TABLET PO SCH (08:33)
[2018-02-17] MEDS ORDERED: FUROSEMIDE 20 MG/2 ML VIAL IV SCH (09:00)
[2018-02-17] MEDS ORDERED: FUROSEMIDE 40 MG/4 ML VIAL IV SCH (09:00)
--- NOTE | 2018-02-17 09:50 | NUR ---
PT WAS CHANGED, NOTED PT HAVE A BM. PT DOES NOT WANT MALE RULING MACHINE FEEDER TO CHANGE HER
[2018-02-17] MEDS ORDERED: VANCOMYCIN IV 750 MG in IV DEXTROSE 5% 250 ML IV ONE (10:00)
[2018-02-17] MEDS: BISACODYL 5 MG TABLET.DR PO PRN (10:01)
[2018-02-17 11:01] VITALS: BP 101/61
--- NOTE | 2018-02-17 12:00 | NUR ---
PT WAS CHANGED A SECOND FOR BM. PT DOES NOT WANT MALE FIREMAN TO CHANGE HER
--- NOTE | 2018-02-17 13:04 | NUR ---
pT ASKED FOR ANTACID, CALLED MD FOR ORDERS.
[2018-02-17] MEDS ORDERED: METRONIDAZOLE 500 MG/NS 100ML 500 MG in PREMIXED 1 EACH IV SCH (14:00)
[2018-02-17 15:07] VITALS: BP 112/64
--- NOTE | 2018-02-17 17:39 | NUR ---
Pt has been discharged with orders, pt was transported to [facility] via [facility] accompanied by to medical transcription editor, ACLS. Report given to Jolene in [facility]. A-fib under control as of now. Whalen cath in place. IV 22g left on left AC for ACLS transportation. Personal belongings account for and sign by patient. Discharge papers signed for. No immediate s/s of SOB, pain, distress or discomfort. Picture taken of right eye and right forehead.
[2018-02-17] MEDS ORDERED: PREG50CA PO (17:51)
[2018-02-17] MEDS ORDERED: BUPR-96 PO (17:51)
[2018-02-17] MEDS ORDERED: ENOX30DI SUBCUT (17:51)
[2018-02-17] MEDS ORDERED: ACET325S8 PO (17:51)
[2018-02-17] MEDS ORDERED: FURO10VI IV (17:51)
[2018-02-17] MEDS ORDERED: POLY17PO4 PO (17:51)
[2018-02-17] MEDS ORDERED: LIDO35.4 TOP (17:51)
[2018-02-17] MEDS ORDERED: MENT71OI TOP (17:51)
[2018-02-17] MEDS ORDERED: SEVE800T7 PO (17:51)
[2018-02-17] MEDS ORDERED: BISA10SU12 RC (17:51)
[2018-02-17] MEDS ORDERED: BISA5TAB13 PO (17:51)
[2018-02-17] MEDS ORDERED: OXYC5TAB3 PO (17:51)
[2018-02-17] MEDS ORDERED: ACET325T53 PO (17:51)
[2018-02-17] MEDS ORDERED: LACT1CAP57 PO (17:51)
[2018-02-17] MEDS ORDERED: IPRA0.2S6 NEB (17:51)
[2018-02-17] MEDS ORDERED: LEVA0.6320 NEB (17:51)
[2018-02-17] MEDS ORDERED: AMIO200T6 PO (17:51)
== END 2018-02-17 17:30 | DRG 871 ==
LOC: MED 09:43 → TELE 09:50 → TELE-TD 19:59
PROVIDERS: ADMIT Internal Medicine; ATTEND Internal Medicine
DX: A40.9 Streptococcal sepsis, unspecified (principal); J18.9 Pneumonia, unspecified organism; I50.31 Acute diastolic (congestive) heart failure; J96.01 Acute respiratory failure with hypoxia; N18.4 Chronic kidney disease, stage 4 (severe); N39.0 Urinary tract infection, site not specified; N13.30 Unspecified hydronephrosis; N17.9 Acute kidney failure, unspecified; R78.81 Bacteremia; A41.89 Other specified sepsis; J84.17 Other interstitial pulmonary diseases with fibrosis in diseases classified elsewhere; B94.8 Sequelae of other specified infectious and parasitic diseases; I08.1 Rheumatic disorders of both mitral and tricuspid valves; M81.0 Age-related osteoporosis without current pathological fracture; E03.9 Hypothyroidism, unspecified; I25.10 Atherosclerotic heart disease of native coronary artery without angina pectoris; I27.20 Pulmonary hypertension, unspecified; G35 Multiple sclerosis; N31.9 Neuromuscular dysfunction of bladder, unspecified; Z88.0 Allergy status to penicillin; Z79.899 Other long term (current) drug therapy; B95.2 Enterococcus as the cause of diseases classified elsewhere; I48.0 Paroxysmal atrial fibrillation; K80.20 Calculus of gallbladder without cholecystitis without obstruction; F41.9 Anxiety disorder, unspecified; K59.00 Constipation, unspecified; F32.9 Major depressive disorder, single episode, unspecified; I77.810 Thoracic aortic ectasia; Z96.0 Presence of urogenital implants; B95.4 Other streptococcus as the cause of diseases classified elsewhere; K22.70 Barrett's esophagus without dysplasia; Z90.49 Acquired absence of other specified parts of digestive tract
CPT/HCPCS: 36415; 36600; 71045; 71270; 83605; 83735; 84100; 85025; 87040; 87070; 87086; 94640; 94664; 97110; 97116; 97530; A4217; A9150; J0282; J1650; J1940; J1956; J2060; J2185; J3370; J3475; J3490; J3590; J7040; J7050; J7060; J7614

== ENCOUNTER → 2018-02-10 | Day surgery (SDC) | payer MEDICARE, BC ==
[~2018-02-10] MED LIST: ACET325S8 PO; ACET325T53 PO; AMIO200T6 PO; BISA10SU12 RC; BISA5TAB13 PO; BUPR-96 PO; CALC0.258 PO; DIME240C2 PO; ENOX30DI SUBCUT; FURO10VI IV; GABA600T PO; IOHEXOL 300MG/ML 50 ML VIAL ONE; IPRA0.2S6 NEB; LACT1CAP57 PO; LEVA0.6320 NEB; LEVO112T2 PO; LIDO35.4 TOP; MENT71OI TOP; METO-356 PO; OMEP20TA20 PO; OXYC5TAB3 PO; POLY17PO4 PO; PREG50CA PO; SENN-18 PO; SERT50TA PO; SEVE800T7 PO; SODI650T PO; TRAZ-214 PO
== END | disposition home or self-care (01) ==
LOC: DS 04:30
PROVIDERS: ATTEND Urology
DX: N28.89 Other specified disorders of kidney and ureter (principal); Z53.9 Procedure and treatment not carried out, unspecified reason
CPT/HCPCS: A4217; J7030; Q9967